=== PATIENT | male | born 1955 | race Caucasian/White ===

== ENCOUNTER 2018-07-08 11:49 | Outpatient (CLI) | payer BC, SELFPAY ==
[2018-07-08 12:02] LABS: Abs Immature Grans 0.02 k/cumm (0.0-0.09); Absolute Basophil Count 0.02 k/cumm (0.0-0.2); Absolute Eosinophil Count 0.22 k/cumm (0.0-0.7); Absolute Lymphocyte Count 1.34 k/cumm (1.2-3.4); Absolute Monocyte Count 0.42 k/cumm (0.11-0.7); Absolute Neutrophil Count 5.82 k/cumm (1.2-6.7); Basophils % 0.3; Eosinophils % 2.8; HCT 34.6 % (40.0-50.0); HGB 11.3 g/dL (13.5-17.5); Immature Grans % 0.3; Lymphocytes % 17.1; Mean Corp. HGB Concentration 32.7 g/dL (32.0-36.0); Mean Corpuscular Hemoglobin 27.6 pg (27.0-33.0); Mean Corpuscular Volume 84.4 fL (80-95); Mean Platelet Volume 9.1 fL (8.0-11.0); Monocytes % 5.4; Neutrophils % 74.1; Platelet Count 284 x1000/uL (130-400); RBC Distribution Width 14.7 % (11.8-14.1); White Blood Cell Count 7.84 k/cumm (4.4-10.8)
[2018-07-08 12:25] LABS: ALT 20 U/L (12-78); AST 19 U/L (15-37); Albumin 3.6 g/dL (3.4-5.0); Alkaline Phosphatase 89 U/L (46-116); Anion Gap 8.9 mmol/L (3-11); BUN 20 mg/dL (7-18); Bilirubin, Total 0.2 mg/dL (0.2-1.0); CO2 25.1 mmol/L (21.0-32.0); CREATININE 1.39 mg/dL (0.70-1.30); Calcium 8.8 mg/dL (8.5-10.1); Chloride 105 mmol/L (98-107); Estimated GFR 51.78 (mL/min/1.73m2); Glucose 127 mg/dL (70-100); Potassium 3.7 mmol/L (3.5-5.1); Sodium 139 mmol/L (136-145); Total Protein 7.1 g/dL (6.4-8.2)
[2018-07-09 09:39] LABS: PSA, Diagnostic 6.6 ng/ml (0-4.5)
== END 2018-07-08 12:09 ==
PROVIDERS: PCP Nurse Practitioner Family; Visit Provider Radiology Radiation Oncology
DX: C61 Malignant neoplasm of prostate (principal)
CPT/HCPCS: 36415; 80053; 84153; 85025

== ENCOUNTER 2018-08-15 09:29 | Outpatient (CLI) | payer BC, SELFPAY ==
[2018-08-15 10:00] LABS: Abs Immature Grans 0.01 k/cumm (0.0-0.09); Absolute Basophil Count 0.02 k/cumm (0.0-0.2); Absolute Lymphocyte Count 1.17 k/cumm (1.2-3.4); Absolute Monocyte Count 0.46 k/cumm (0.11-0.7); Absolute Neutrophil Count 4.63 k/cumm (1.2-6.7); Basophils % 0.3; Eosinophils % 3.1; HCT 36.4 % (40.0-50.0); HGB 12.1 g/dL (13.5-17.5); Immature Grans % 0.2; Mean Corp. HGB Concentration 33.2 g/dL (32.0-36.0); Mean Corpuscular Hemoglobin 28.3 pg (27.0-33.0); Mean Platelet Volume 8.9 fL (8.0-11.0); Monocytes % 7.1; Neutrophils % 71.3; Platelet Count 261 x1000/uL (130-400); RBC 4.28 m/cumm (4.50-6.00); RBC Distribution Width 14.4 % (11.8-14.1); White Blood Cell Count 6.49 k/cumm (4.4-10.8)
[2018-08-15 11:42] LABS: ALT 21 U/L (12-78); AST 19 U/L (15-37); Albumin 3.6 g/dL (3.4-5.0); Alkaline Phosphatase 75 U/L (46-116); Anion Gap 9.6 mmol/L (3-11); BUN 18 mg/dL (7-18); Bilirubin, Total 0.3 mg/dL (0.2-1.0); CO2 26.4 mmol/L (21.0-32.0); CREATININE 1.24 mg/dL (0.70-1.30); Calcium 8.5 mg/dL (8.5-10.1); Chloride 105 mmol/L (98-107); Estimated GFR 59.07 (mL/min/1.73m2); Glucose 99 mg/dL (70-100); Potassium 4.3 mmol/L (3.5-5.1); Sodium 141 mmol/L (136-145); Total Protein 6.5 g/dL (6.4-8.2)
[2018-08-16 09:27] LABS: PSA, Diagnostic 5.4 ng/ml (0-4.5)
== END 2018-08-15 09:49 ==
PROVIDERS: PCP Nurse Practitioner Family; Visit Provider Radiology Radiation Oncology
DX: C61 Malignant neoplasm of prostate (principal)
CPT/HCPCS: 36415; 80053; 84153; 85025

== ENCOUNTER 2018-10-10 01:26 | Outpatient (CLI) | payer BC, SELFPAY ==
[2018-10-10 10:27] LABS: Abs Immature Grans 0.02 k/cumm (0.0-0.09); Absolute Basophil Count 0.02 k/cumm (0.0-0.2); Absolute Eosinophil Count 0.31 k/cumm (0.0-0.7); Absolute Lymphocyte Count 1.22 k/cumm (1.2-3.4); Absolute Monocyte Count 0.25 k/cumm (0.11-0.7); Absolute Neutrophil Count 5.25 k/cumm (1.2-6.7); Basophils % 0.3; Eosinophils % 4.4; HCT 39.3 % (40.0-50.0); HGB 12.8 g/dL (13.5-17.5); Immature Grans % 0.3; Lymphocytes % 17.3; Mean Corp. HGB Concentration 32.6 g/dL (32.0-36.0); Mean Corpuscular Hemoglobin 27.6 pg (27.0-33.0); Mean Corpuscular Volume 84.7 fL (80-95); Mean Platelet Volume 9.2 fL (8.0-11.0); Monocytes % 3.5; Neutrophils % 74.2; Platelet Count 260 x1000/uL (130-400); RBC 4.64 m/cumm (4.50-6.00); RBC Distribution Width 13.9 % (11.8-14.1); White Blood Cell Count 7.07 k/cumm (4.4-10.8)
[2018-10-10 10:36] LABS: ALT 19 U/L (12-78); AST 17 U/L (15-37); Albumin 3.6 g/dL (3.4-5.0); Alkaline Phosphatase 75 U/L (46-116); Anion Gap 9.1 mmol/L (3-11); BUN 19 mg/dL (7-18); Bilirubin, Total 0.4 mg/dL (0.2-1.0); CO2 27.9 mmol/L (21.0-32.0); CREATININE 1.23 mg/dL (0.70-1.30); Calcium 8.9 mg/dL (8.5-10.1); Chloride 102 mmol/L (98-107); Estimated GFR 59.63 (mL/min/1.73m2); Glucose 154 mg/dL (70-100); Potassium 3.8 mmol/L (3.5-5.1); Sodium 139 mmol/L (136-145); Total Protein 7.2 g/dL (6.4-8.2)
[2018-10-12 10:25] LABS: PSA, Diagnostic 4.8 ng/ml (0-4.5)
[2018-10-14 21:07] LABS: Testosterone, Total <7.0 ng/dL (240-950)
== END 2018-10-10 01:46 ==
PROVIDERS: PCP Nurse Practitioner Family; Visit Provider Internal Medicine
DX: C61 Malignant neoplasm of prostate (principal)
CPT/HCPCS: 36415; 80053; 84403; 84153; 85025

== ENCOUNTER 2018-12-01 11:14 | Outpatient (CLI) | payer OTHER, SELFPAY ==
[2018-12-01 11:43] LABS: Abs Immature Grans 0.02 k/cumm (0.0-0.09); Absolute Basophil Count 0.03 k/cumm (0.0-0.2); Absolute Eosinophil Count 0.33 k/cumm (0.0-0.7); Absolute Lymphocyte Count 1.34 k/cumm (1.2-3.4); Absolute Monocyte Count 0.25 k/cumm (0.11-0.7); Absolute Neutrophil Count 5.01 k/cumm (1.2-6.7); Basophils % 0.4; Eosinophils % 4.7; HCT 39.4 % (40.0-50.0); HGB 12.5 g/dL (13.5-17.5); Immature Grans % 0.3; Lymphocytes % 19.2; Mean Corp. HGB Concentration 31.7 g/dL (32.0-36.0); Mean Corpuscular Hemoglobin 26.5 pg (27.0-33.0); Mean Corpuscular Volume 83.7 fL (80-95); Mean Platelet Volume 9.1 fL (8.0-11.0); Monocytes % 3.6; Neutrophils % 71.8; Platelet Count 280 x1000/uL (130-400); RBC 4.71 m/cumm (4.50-6.00); RBC Distribution Width 14.2 % (11.8-14.1); White Blood Cell Count 6.98 k/cumm (4.4-10.8)
[2018-12-01 11:54] LABS: ALT 20 U/L (12-78); AST 17 U/L (15-37); Albumin 3.5 g/dL (3.4-5.0); Alkaline Phosphatase 86 U/L (46-116); Anion Gap 7.3 mmol/L (3-11); BUN 21 mg/dL (7-18); Bilirubin, Total 0.3 mg/dL (0.2-1.0); CO2 29.7 mmol/L (21.0-32.0); CREATININE 1.36 mg/dL (0.70-1.30); Chloride 103 mmol/L (98-107); Estimated GFR 52.93 (mL/min/1.73m2); Glucose 161 mg/dL (70-100); Potassium 3.9 mmol/L (3.5-5.1); Sodium 140 mmol/L (136-145); Total Protein 7.7 g/dL (6.4-8.2)
[2018-12-02 10:44] LABS: PSA, Diagnostic 6.3 ng/ml (0-4.5)
[2018-12-03 15:14] LABS: Testosterone, Total <7.0 ng/dL (240-950)
== END 2018-12-01 11:34 ==
PROVIDERS: PCP Nurse Practitioner Family; Visit Provider Internal Medicine
DX: C61 Malignant neoplasm of prostate (principal)
CPT/HCPCS: 36415; 80053; 84403; 84153; 85025

== ENCOUNTER 2019-01-04 11:12 | Outpatient (CLI) | payer OTHER, SELFPAY ==
[2019-01-04 11:42] LABS: Abs Immature Grans 0.02 k/cumm (0.0-0.09); Absolute Basophil Count 0.03 k/cumm (0.0-0.2); Absolute Eosinophil Count 0.42 k/cumm (0.0-0.7); Absolute Lymphocyte Count 1.28 k/cumm (1.2-3.4); Absolute Monocyte Count 0.46 k/cumm (0.11-0.7); Absolute Neutrophil Count 6.42 k/cumm (1.2-6.7); Basophils % 0.3; Eosinophils % 4.9; HGB 11.9 g/dL (13.5-17.5); Immature Grans % 0.2; Lymphocytes % 14.8; Mean Corp. HGB Concentration 33.1 g/dL (32.0-36.0); Mean Corpuscular Hemoglobin 27.2 pg (27.0-33.0); Mean Corpuscular Volume 82.2 fL (80-95); Mean Platelet Volume 9.2 fL (8.0-11.0); Monocytes % 5.3; Neutrophils % 74.5; Platelet Count 287 x1000/uL (130-400); RBC 4.38 m/cumm (4.50-6.00); RBC Distribution Width 14.7 % (11.8-14.1); White Blood Cell Count 8.63 k/cumm (4.4-10.8)
[2019-01-04 11:55] LABS: ALT 20 U/L (12-78); AST 18 U/L (15-37); Albumin 3.6 g/dL (3.4-5.0); Alkaline Phosphatase 93 U/L (46-116); Anion Gap 10.1 mmol/L (3-11); BUN 20 mg/dL (7-18); Bilirubin, Total 0.3 mg/dL (0.2-1.0); CO2 27.9 mmol/L (21.0-32.0); Calcium 8.7 mg/dL (8.5-10.1); Chloride 101 mmol/L (98-107); Glucose 113 mg/dL (70-100); Potassium 3.8 mmol/L (3.5-5.1); Sodium 139 mmol/L (136-145); Total Protein 7.3 g/dL (6.4-8.2)
[2019-01-05 09:38] LABS: PSA, Diagnostic 6.1 ng/ml (0-4.5)
[2019-01-07 07:07] LABS: Testosterone, Total <7.0 ng/dL (240-950)
== END 2019-01-04 11:32 ==
PROVIDERS: Nurse Practitioner Family; PCP Nurse Practitioner Family; Visit Provider Internal Medicine
DX: C61 Malignant neoplasm of prostate (principal); C79.51 Secondary malignant neoplasm of bone
CPT/HCPCS: 36415; 80053; 84403; 84153; 85025

== ENCOUNTER 2019-03-18 10:47 | Outpatient (CLI) | payer OTHER, SELFPAY ==
[2019-03-18 11:03] LABS: Abs Immature Grans 0.03 k/cumm (0.0-0.09); Absolute Basophil Count 0.02 k/cumm (0.0-0.2); Absolute Eosinophil Count 0.35 k/cumm (0.0-0.7); Absolute Lymphocyte Count 1.43 k/cumm (1.2-3.4); Absolute Monocyte Count 0.41 k/cumm (0.11-0.7); Absolute Neutrophil Count 5.46 k/cumm (1.2-6.7); Basophils % 0.3; Eosinophils % 4.5; HCT 36.6 % (40.0-50.0); HGB 11.8 g/dL (13.5-17.5); Immature Grans % 0.4; Lymphocytes % 18.6; Mean Corp. HGB Concentration 32.2 g/dL (32.0-36.0); Mean Corpuscular Hemoglobin 26.8 pg (27.0-33.0); Mean Platelet Volume 8.9 fL (8.0-11.0); Monocytes % 5.3; Neutrophils % 70.9; Platelet Count 301 x1000/uL (130-400); RBC 4.41 m/cumm (4.50-6.00); RBC Distribution Width 14.8 % (11.8-14.1)
[2019-03-18 11:29] LABS: ALT 21 U/L (12-78); AST 17 U/L (15-37); Albumin 3.5 g/dL (3.4-5.0); Alkaline Phosphatase 91 U/L (46-116); Anion Gap 10.3 mmol/L (3-11); BUN 16 mg/dL (7-18); Bilirubin, Total 0.2 mg/dL (0.2-1.0); CO2 26.7 mmol/L (21.0-32.0); CREATININE 1.12 mg/dL (0.70-1.30); Chloride 103 mmol/L (98-107); Glucose 108 mg/dL (70-100); Potassium 3.7 mmol/L (3.5-5.1); Sodium 140 mmol/L (136-145); Total Protein 7.2 g/dL (6.4-8.2)
== END 2019-03-18 11:07 ==
PROVIDERS: PCP Nurse Practitioner Family
DX: C61 Malignant neoplasm of prostate (principal); C79.51 Secondary malignant neoplasm of bone
CPT/HCPCS: 36415; 80053; 85025

== ENCOUNTER 2019-04-15 09:54 | Outpatient (CLI) | payer OTHER, SELFPAY ==
[2019-04-18 10:50] LABS: PSA, Diagnostic 11.6 ng/ml (0-4.5)
[2019-04-18 12:57] LABS: Testosterone, Total <7.0 ng/dL (240-950)
[2019-04-19 15:04] LABS: ALT 35 U/L (12-78); AST 21 U/L (15-37); Albumin 3.6 g/dL (3.4-5.0); Alkaline Phosphatase 92 U/L (46-116); Anion Gap 16.6 mmol/L (3-11); BUN 14 mg/dL (7-18); Bilirubin, Total 0.3 mg/dL (0.2-1.0); CO2 21.4 mmol/L (21.0-32.0); Chloride 104 mmol/L (98-107); Glucose 105 mg/dL (70-100); Sodium 142 mmol/L (136-145); Total Protein 6.7 g/dL (6.4-8.2)
[2019-04-19 15:09] LABS: CREATININE 1.01 mg/dL (0.70-1.30)
[2019-04-19 15:12] LABS: Potassium 4.2 mmol/L (3.5-5.1)
== END 2019-04-15 10:14 ==
PROVIDERS: Internal Medicine; PCP Nurse Practitioner Family; Visit Provider Nurse Practitioner Family
DX: C61 Malignant neoplasm of prostate (principal); C79.51 Secondary malignant neoplasm of bone
CPT/HCPCS: 36415; 80053; 84403; 84153

== ENCOUNTER 2019-04-22 01:29 | Outpatient (CLI) | payer OTHER, SELFPAY ==
--- NOTE | 2019-04-22 10:30 | DI.NM_ITS ---
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 Examination was compared with the previous examination of 12/22/2017. Previous examination showed multiple areas of abnormal uptake consistent with widespread metastatic prostatic carcinoma. On today's examination, there is some decreased intensity of lesions in the lumbar and thoracic spine. Some rib lesions also show mildly decreased intensity. No convincing new lesions identified. CONCLUSION: Findings of decreased intensity of lumbar and rib metastatic lesions since the previous examination of 12/22/17. Other lesions remain unchanged. No new lesions identified.
== END 2019-04-22 01:49 ==
PROVIDERS: PCP Nurse Practitioner Family; Visit Provider Internal Medicine
DX: C61 Malignant neoplasm of prostate (principal); C79.51 Secondary malignant neoplasm of bone; M54.89 Other dorsalgia
CPT/HCPCS: 78306

== ENCOUNTER 2019-05-10 08:50 | Outpatient (CLI) | payer MEDICAID, SELFPAY ==
[2019-05-10 09:27] LABS: Abs Immature Grans 0.01 k/cumm (0.0-0.09); Absolute Basophil Count 0.01 k/cumm (0.0-0.2); Absolute Eosinophil Count 0.05 k/cumm (0.0-0.7); Absolute Lymphocyte Count 0.54 k/cumm (1.2-3.4); Absolute Monocyte Count 0.36 k/cumm (0.11-0.7); Absolute Neutrophil Count 3.33 k/cumm (1.2-6.7); Basophils % 0.2; Eosinophils % 1.2; HCT 32.2 % (40.0-50.0); HGB 10.7 g/dL (13.5-17.5); Immature Grans % 0.2; Lymphocytes % 12.6; Mean Corp. HGB Concentration 33.2 g/dL (32.0-36.0); Mean Corpuscular Hemoglobin 27.7 pg (27.0-33.0); Mean Corpuscular Volume 83.4 fL (80-95); Mean Platelet Volume 8.5 fL (8.0-11.0); Monocytes % 8.4; Neutrophils % 77.4; Platelet Count 145 x1000/uL (130-400); RBC 3.86 m/cumm (4.50-6.00); RBC Distribution Width 15.8 % (11.8-14.1)
[2019-05-10 09:49] LABS: ALT 46 U/L (12-78); AST 28 U/L (15-37); Albumin 3.5 g/dL (3.4-5.0); Alkaline Phosphatase 111 U/L (46-116); Anion Gap 12.4 mmol/L (3-11); BUN 18 mg/dL (7-18); Bilirubin, Total 0.4 mg/dL (0.2-1.0); CO2 24.6 mmol/L (21.0-32.0); CREATININE 1.05 mg/dL (0.70-1.30); Calcium 8.7 mg/dL (8.5-10.1); Chloride 104 mmol/L (98-107); Glucose 133 mg/dL (70-100); Potassium 3.4 mmol/L (3.5-5.1); Sodium 141 mmol/L (136-145); Total Protein 6.9 g/dL (6.4-8.2)
[2019-05-10 13:35] LABS: Magnesium 1.8 mg/dL (1.8-2.4)
[2019-05-11 10:06] LABS: PSA, Diagnostic 9.6 ng/ml (0-4.5)
[2019-05-12 13:55] LABS: Testosterone, Total 9.2 ng/dL (240-950)
== END 2019-05-10 09:10 ==
PROVIDERS: PCP Nurse Practitioner Family; Visit Provider Internal Medicine
DX: C61 Malignant neoplasm of prostate (principal); C79.51 Secondary malignant neoplasm of bone; I49.9 Cardiac arrhythmia, unspecified
CPT/HCPCS: 36415; 80053; 84403; 83735; 84153; 85025

== ENCOUNTER 2019-05-27 11:14 | Emergency (ER) | payer MEDICAID, SELFPAY ==
[2019-05-27] VITALS (36 sets, daily range): BP systolic 112–134; BP diastolic 69–88; PULSE 64–87; RESP 10–22; TEMP 36.7–36.8; O2SAT 94–98
--- NOTE | 2019-05-27 11:37 | W.ED.GENAD ---
Discharge Plan Disposition Patient Disposition: HOME Condition: Improving Discharge Details Chief Complaint: Dizzy/Sync Clinical Impression: Pancytopenia, Status post chemotherapy, Dizziness, Dehydration Primary Care Provider: Mary Holland ED Provider: Fatou Cage Home Meds and New Rx's Prescriptions: Continued celecoxib 200 mg capsule 200 mg PO BID PRN (Reason: pain) Qty: 60 RF: 4 calcium-vitamin D3-vitamin K 1 EACH tablet,chewable 1 ea PO DAILY Qty: 90 RF: 3 amlodipine 10 MG tablet 10 mg PO DAILY RF: 0 potassium chloride 10 MEQ capsule, extended release 20 meq PO DAILY RF: 0 lisinopril [Zestril] 30 MG tablet 30 mg PO QAM RF: 0 tamsulosin 0.4 mg capsule 0.4 mg PO BID RF: 0 acyclovir 800 mg tablet 800 mg PO .five times daily PRNRF: 0 Discharge Instructions Instructions: Dehydration (ED), Dizziness (ED) Additional Instructions: Drink plenty of fluids and get plenty of rest. Follow-up with your scheduled appointment with [facility] oncology on Thursday Return to the emergency department if you develop any worsening or concerning symptoms of fever, headache, chest pain, worsening dizziness or shortness of breath. Discharge Data Discharge Date/Time-TO BE ENTERED AT DEPARTURE: 05/27/19 17:04 Discharge Physician: Fatou Cage Medical Decision Making 63yo M w/ a h/o prostate cancer with bone mets, BPH, hypertension who presents with dizziness and lightheadedness for the past 2 weeks but occurs with walking. Patient is two-week status post chemotherapy. EKG notes a rate of 91, sinus, [address] depression noted in 1 and V6 which is seen in previous EKG. [address] depression in V4 and V5 which is new compared to previous EKG. Labs and imaging ordered on arrival. White blood cell count 3.51, decreased from 4.3 two weeks ago, hemoglobin 8.1 decreased from 10.7 two weeks ago, platelets 63 decreased from 145 two weeks ago. No neutropenia. Troponin negative. CT head and chest x-ray negative. Urinalysis negative. Patient given IV fluids here. Will attempt to ambulate and will call [facility] oncology for recommendations. 1420 -- d/w oncology at [facility] - reviewed labs and pancytopenia can be expected with his recent chemo. Reviewed work-up and as there are no acute findings and if patient feels better after IV fluids, can be discharged home and follow-up with scheduled appointment with oncology on Thursday. 1614 --orthostats consistent with some dehydration. Patient felt much better after 2 L of IV fluids. He was able to ambulate denies any dizziness and he is requesting to go home. Patient advised to follow-up with his scheduled appointment with [facility] oncology on Thursday and to return here at anytime with any concerns. Medical Records Medical records reviewed: Yes I reviewed the patient's medical records. Imaging Data Radiologic Study: Radiologist's impression: CT BRAIN: Noncontrast. No priors There is a normal greenfield/white matter differentiation. The ventricles are intact. The basilar cisterns are patent. No acute intracranial hemorrhage, midline shift or mass effect. The calvarium is intact. The visualized paranasal sinuses are clear as are the mastoid air cells. IMPRESSION: No acute intracranial process. CHEST X-RAY: PA AND LATERAL. Comparison 05/04/17 Heart size and pulmonary vasculature are within normal limits. The lungs are clear and well expanded. No effusions or pneumothoraces are identified. There are sclerotic lesions in the bones consistent with osseous metastatic disease IMPRESSION: 1. No acute pulmonary process 2. Osseous metastases. Lab Data Lab results reviewed: Yes I reviewed the patient's lab results. Laboratory Tests Range/Units 05/27/19 05/27/19 05/27/19 11:40 11:40 13:03 WBC (4.4-10.8) k/cumm 3.51 L RBC (4.50-6.00) m/cumm 3.15 L Hgb (13.5-17.5) g/dL 8.9 L Hct (40.0-50.0) % 26.8 L MCV (80-95) fL 85.1 MCH (27.0-33.0) pg 28.3 MCHC (32.0-36.0) g/dL 33.2 RDW (11.8-14.1) % 17.3 H Plt Count (130-400) x1000/uL 63 L D MPV (8.0-11.0) fL 8.6 Immature Gran % 0.6 Neutrophils % 74.0 Lymphocytes % 13.7 Monocytes % 10.3 Eosinophils % 1.1 Basophils % 0.3 Absolute Neutrophils (1.2-6.7) k/cumm 2.60 Absolute Lymphocytes (1.2-3.4) k/cumm 0.48 L Absolute Monocytes (0.11-0.7) k/cumm 0.36 Absolute Eosinophils (0.0-0.7) k/cumm 0.04 Absolute Basophils (0.0-0.2) k/cumm 0.01 Sodium (136-145) mmol/L 140 Potassium (3.5-5.1) mmol/L 3.7 Chloride (98-107) mmol/L 105 Carbon Dioxide (21.0-32.0) mmol/L 23.8 Anion Gap (3-11) mmol/L 11.2 H BUN (7-18) mg/dL 22 H Creatinine (0.70-1.30) mg/dL 1.36 H Estimated GFR/1.73 m2 (mL/min/1.73m2) 52.93 Glucose (70-100) mg/dL 129 H Calcium (8.5-10.1) mg/dL 8.4 L Magnesium (1.8-2.4) mg/dL 1.8 Total Bilirubin (0.2-1.0) mg/dL 0.3 AST (15-37) U/L 22 ALT (12-78) U/L 35 Alkaline Phosphatase (46-116) U/L 112 Troponin I (0.00-0.06) ng/mL < 0.05 Total Protein (6.4-8.2) g/dL 6.6 Albumin (3.4-5.0) g/dL 3.4 Urine Color (Yellow) Yellow Urine Clarity (Clear) Clear Urine pH (5-8) 6.0 Ur Specific [place] (1.005-1.025) 1.010 Urine Protein (Negative) mg/dL Negative Urine Ketones (Negative) mg/dL Negative Urine Blood (Negative) Negative Urine Nitrite (Negative) Negative Urine Bilirubin (Negative) Negative Urine Urobilinogen (Up TO 0.2) EU/dL 0.2 Ur Leukocyte Esterase (Negative) Negative Urine Glucose (Negative) mg/dL Negative ECG Data Attestation: I personally reviewed and interpreted this ECG (s) as follows: Interpretation: rate of 91, sinus, PVCs, no acute ST elevation or depression, QTc 440, QRS 96. HPI General Mode of arrival: ambulatory. Date/Time Provider Initiated Documentation: 05/27/19 11:29. Limitations to Documentation: no limitations. Information obtained by: patient. HPI Narrative: Pt is a 63yo male who presents to the ED with complaint of dizziness for the past 2 weeks. Patient states that mainly happens when he is walking for a few minutes. He denies any dizziness when he is resting or sitting. He also admits to decreased appetite for the past 2 weeks. He states he had his first round of chemo 3 weeks ago and his second round 2 weeks ago. He states his next session is scheduled for next week. He states he also was started on metoprolol 2 weeks ago. He admits to occasional headache but denies any at present. He also admits to occasional diarrhea once daily for the past 3 days but denies any rectal bleeding. He denies known fever, chest pain, shortness of breath, palpitations, recent antibiotics, recent hospital admission or urinary symptoms he states his oncologist is Dr. Hyde and he receives his chemo at [facility]. Related Data Home Medications Medication Instructions Recorded Confirmed calcium-vitamin D3-vitamin K 1 ea PO DAILY #90 tab.chew 04/26/14 05/27/19 amlodipine 10 mg PO DAILY 08/25/14 05/27/19 lisinopril [Zestril] 30 mg PO QAM 05/04/17 05/27/19 potassium chloride 20 meq PO DAILY 05/04/17 05/27/19 celecoxib 200 mg capsule 200 mg PO BID PRN #60 cap 03/02/19 05/27/19 tamsulosin 0.4 mg capsule 0.4 mg PO BID cap 03/02/19 05/27/19 acyclovir 800 mg tablet 800 mg PO .five times daily PRN 05/11/19 05/27/19 tab Previous Rx's Medication Instructions Recorded celecoxib 200 mg capsule 200 mg PO BID PRN #60 cap 03/02/19 Allergies Allergy/AdvReac Type Severity Reaction Status Date / Time docetaxel Allergy Severe Anaphylaxsi Unverified 05/27/19 11:30 s adhesive tape Allergy Hives Unverified 05/27/19 11:30 oxycodone HCl [From Percocet] AdvReac Intermediate Nausea Unverified 05/27/19 11:30 tramadol AdvReac Intermediate Dizziness/L Unverified 05/27/19 11:30 ightheade Opioids - Morphine Analogues AdvReac Unknown nausea Unverified 05/27/19 11:30 pain killers Allergy Uncoded 05/27/19 11:30 General Stated Complaint: Dizzy/Sync ADA: 3 Review of Systems Review of Systems All systems reviewed & are unremarkable except as noted in HPI and below Constitutional Reports as per HPI, Denies chills, Denies fever(s) and Reports weakness Eyes Denies blurry vision ENT Reports dizziness, Denies sore throat and Denies throat swelling Cardiovascular Denies chest pain and Denies dyspnea Respiratory Denies cough and Denies dyspnea Gastrointestinal Denies abdominal pain, Denies diarrhea and Denies vomiting Genitourinary Denies hematuria and Denies dysuria Musculoskeletal Denies back pain and Denies numbness Integumentary/Breasts Denies lesions and Denies rash Neurologic Reports dizziness, Denies focal weakness, Denies numbness and Reports weakness Allergic/Immunologic Denies throat swelling [facility] Medical History Adenocarcinoma of prostate (Chronic) Aortic stenosis (Chronic) Bilateral inguinal hernia BPH (benign prostatic hypertrophy) with urinary obstruction (Chronic) History of herpes simplex type 2 infection (Chronic) Hypertension (Chronic) Malignant neoplasm of prostate metastatic to bone (Inactive) Prostate cancer metastatic to multiple sites (Acute) Tobacco dependence (Chronic) Vertigo (Acute) Surgical History Arthroplasty of knee Cystoscopy History of orchiectomy, bilateral (Acute) Hx of prostate biopsy (Acute) Rotator Cuff Repair S/P TURP (status post transurethral resection of prostate) (Acute) Family History Mother Pancreatic cancer Brother Colorectal cancer Son No problems noted. Daughter No problems noted. Social History Smoking/Tobacco Use Status: Former Tobacco Use Quit Date: 02/13/16 Alcohol Intake: never Drug use: Never Do you feel safe at home: Yes Do you feel safe in your relationship?: Yes Exam Const General: cooperative, healthy appearing and no acute distress HENMT Head: normal to inspection Face and sinus: normal facial exam Eyes General: appearance normal, both eyes and all related structures EOM: EOM intact bilaterally Neck Neck: normal visual inspection and No submandibular swelling Lymphatic: no lymphadenopathy noted Chest Chest: normal inspection of the chest and no tenderness Resp Effort & Inspection: normal respiratory effort and able to speak in complete sentences Auscultation: clear to auscultation bilaterally Cardio Rate: regular rate Rhythm: regular rhythm GI Inspection: normal to inspection Palpation: soft, not firm, not rigid and nontender Auscultation: normal bowel sounds Skin General skin exam: no rashes or lesions noted Neuro General: alert, awake and oriented x3 Cranial Nerves: CN's II-XI intact bilaterally Cognition: normal cognition Speech: speech normal Motor: muscle tone normal throughout and strength 5/5 throughout Sensory Exam: no sensory deficits noted Extrem General: normal to inspection, full ROM, normal capillary refill, no calf tenderness bilaterally and no edema Psych Appearance: grossly normal Mental Status: mental status grossly normal Speech and Movement: speech and movement normal Affect: normal affect Course Vital Signs Temperature 98.2 F 05/27/19 11:17 Pulse 80 05/27/19 11:17 Respiratory Rate 16 05/27/19 11:17 Blood Pressure 123/70 05/27/19 11:17 Pulse Oximetry 97 05/27/19 11:17 Temperature 98.2 F 05/27/19 11:17 Temperature Source Skin 05/27/19 11:17 Pulse 80 05/27/19 11:17 Respiratory Rate 16 05/27/19 11:17 Respiratory Effort 05/27/19 11:32 Blood Pressure 123/70 05/27/19 11:17 Pulse Oximetry 97 05/27/19 11:17 Oxygen Delivery Method Room Air 05/27/19 11:17 Oxygen Flow Rate 0 05/27/19 11:17 Pain Level 0 05/27/19 11:17
[2019-05-27 12:02] LABS: Abs Immature Grans 0.02 k/cumm (0.0-0.09); Absolute Basophil Count 0.01 k/cumm (0.0-0.2); Absolute Eosinophil Count 0.04 k/cumm (0.0-0.7); Absolute Lymphocyte Count 0.48 k/cumm (1.2-3.4); Absolute Monocyte Count 0.36 k/cumm (0.11-0.7); Basophils % 0.3; Eosinophils % 1.1; HCT 26.8 % (40.0-50.0); HGB 8.9 g/dL (13.5-17.5); Immature Grans % 0.6; Lymphocytes % 13.7; Mean Corp. HGB Concentration 33.2 g/dL (32.0-36.0); Mean Corpuscular Hemoglobin 28.3 pg (27.0-33.0); Mean Corpuscular Volume 85.1 fL (80-95); Mean Platelet Volume 8.6 fL (8.0-11.0); Monocytes % 10.3; RBC 3.15 m/cumm (4.50-6.00); RBC Distribution Width 17.3 % (11.8-14.1); White Blood Cell Count 3.51 k/cumm (4.4-10.8)
--- NOTE | 2019-05-27 12:08 | DI.CT_ITS ---
SYMPTOM/DIAGNOSIS: DIZZINESS, H/O PROSTATE CA, R/O METS/CVA CT BRAIN: Noncontrast. No priors There is a normal greenfield/white matter differentiation. The ventricles are intact. The basilar cisterns are patent. No acute intracranial hemorrhage, midline shift or mass effect. The calvarium is intact. The visualized paranasal sinuses are clear as are the mastoid air cells. IMPRESSION: No acute intracranial process. The findings were discussed with the Emergency Department on the date of the examination.
--- NOTE | 2019-05-27 12:12 | DI.RAD_ITS ---
SYMPTOM/DIAGNOSIS: DIZZINESS, R/O ACUTE DISEASE CHEST X-RAY: PA AND LATERAL. Comparison 05/04/17 Heart size and pulmonary vasculature are within normal limits. The lungs are clear and well expanded. No effusions or pneumothoraces are identified. There are sclerotic lesions in the bones consistent with osseous metastatic disease IMPRESSION: 1. No acute pulmonary process 2. Osseous metastases.
[2019-05-27 12:14] LABS: ALT 35 U/L (12-78); AST 22 U/L (15-37); Albumin 3.4 g/dL (3.4-5.0); Alkaline Phosphatase 112 U/L (46-116); Anion Gap 11.2 mmol/L (3-11); BUN 22 mg/dL (7-18); Bilirubin, Total 0.3 mg/dL (0.2-1.0); CO2 23.8 mmol/L (21.0-32.0); CREATININE 1.36 mg/dL (0.70-1.30); Calcium 8.4 mg/dL (8.5-10.1); Chloride 105 mmol/L (98-107); Estimated GFR 52.93 (mL/min/1.73m2); Glucose 129 mg/dL (70-100); Magnesium 1.8 mg/dL (1.8-2.4); Platelet Count 63 x1000/uL (130-400); Potassium 3.7 mmol/L (3.5-5.1); Sodium 140 mmol/L (136-145); Total Protein 6.6 g/dL (6.4-8.2)
[2019-05-27 12:21] LABS: Troponin I < 0.05 ng/mL (0.00-0.06)
[2019-05-27] MEDS: Normal Saline 1,000 ML 1000 ML IV ×2 (13:02→15:35)
[2019-05-27 13:13] LABS: Bilirubin Negative (Negative); Blood Negative (Negative); Clarity Clear (Clear); Glucose Negative (Negative); Ketones Negative (Negative); Leukocyte Esterase Negative (Negative); Nitrite Negative (Negative); Urobilinogen 0.2 EU/dL (Up TO 0.2)
== END 2019-05-27 17:04 | disposition home or self-care (01) ==
PROVIDERS: Emergency Provider Physician Assistant; PCP Nurse Practitioner Family
DX: E86.0 Dehydration (principal); R42 Dizziness and giddiness; D61.818 Other pancytopenia; C61 Malignant neoplasm of prostate; Z79.899 Other long term (current) drug therapy; I10 Essential (primary) hypertension
CPT/HCPCS: 36415; 80053; 93005; 96360; 96361; 99285; 70450; 71046; 81003; 83735; 84484; 85025; 93010

== ENCOUNTER 2019-05-31 07:51 | Outpatient (CLI) | payer MEDICAID, SELFPAY ==
[2019-05-31 08:24] LABS: Abs Immature Grans 0.01 k/cumm (0.0-0.09); Absolute Basophil Count 0.01 k/cumm (0.0-0.2); Absolute Eosinophil Count 0.05 k/cumm (0.0-0.7); Absolute Lymphocyte Count 0.54 k/cumm (1.2-3.4); Basophils % 0.2; Eosinophils % 1.2; HCT 28.3 % (40.0-50.0); HGB 9.6 g/dL (13.5-17.5); Immature Grans % 0.2; Lymphocytes % 13.1; Mean Corp. HGB Concentration 33.9 g/dL (32.0-36.0); Mean Corpuscular Hemoglobin 29.2 pg (27.0-33.0); Monocytes % 9.7; Neutrophils % 75.6; RBC 3.29 m/cumm (4.50-6.00); RBC Distribution Width 18.5 % (11.8-14.1); White Blood Cell Count 4.11 k/cumm (4.4-10.8)
[2019-05-31 08:33] LABS: Absolute Neutrophil Count 3.11 k/cumm (1.2-6.7)
[2019-05-31 08:41] LABS: ALT 38 U/L (12-78); AST 26 U/L (15-37); Albumin 3.7 g/dL (3.4-5.0); Alkaline Phosphatase 105 U/L (46-116); Anion Gap 12.7 mmol/L (3-11); BUN 20 mg/dL (7-18); Bilirubin, Total 0.3 mg/dL (0.2-1.0); CO2 24.3 mmol/L (21.0-32.0); CREATININE 1.34 mg/dL (0.70-1.30); Calcium 8.5 mg/dL (8.5-10.1); Chloride 103 mmol/L (98-107); Estimated GFR 53.84 (mL/min/1.73m2); Glucose 112 mg/dL (70-100); Magnesium 1.9 mg/dL (1.8-2.4); Potassium 3.8 mmol/L (3.5-5.1); Sodium 140 mmol/L (136-145); Total Protein 7.1 g/dL (6.4-8.2)
[2019-05-31 08:43] LABS: Anisocytosis 2+; Diff Comment RBC Morph Reviewed; Platelet Count 108 x1000/uL (130-400)
[2019-06-01 09:59] LABS: PSA, Diagnostic 7.2 ng/ml (0-4.5)
[2019-06-04 08:16] LABS: Testosterone, Total <7.0 ng/dL (240-950)
== END 2019-05-31 08:11 ==
PROVIDERS: PCP Nurse Practitioner Family; Visit Provider Internal Medicine
DX: C61 Malignant neoplasm of prostate (principal); C79.51 Secondary malignant neoplasm of bone; I49.9 Cardiac arrhythmia, unspecified
CPT/HCPCS: 36415; 80053; 84403; 83735; 84153; 85025

== ENCOUNTER 2019-06-03 11:08 | Emergency (ER) | payer MEDICAID, SELFPAY ==
[2019-06-03] VITALS (47 sets, daily range): BP systolic 115–139; BP diastolic 65–107; PULSE 73–102; RESP 10–21; TEMP 36.6–36.8; O2SAT 89–98
--- NOTE | 2019-06-03 11:19 | W.ED.GENAD ---
Discharge Plan Disposition Patient Disposition: HOME Condition: Stable Discharge Details Chief Complaint: Chest Pain Clinical Impression: Atypical chest pain Primary Care Provider: Mary Holland ED Provider: Tracy Gregory Home Meds and New Rx's Prescriptions: Continued celecoxib 200 mg capsule 200 mg PO BID PRN (Reason: pain) Qty: 60 RF: 4 calcium-vitamin D3-vitamin K 1 EACH tablet,chewable 1 ea PO DAILY Qty: 90 RF: 3 amlodipine 10 MG tablet 10 mg PO DAILY RF: 0 potassium chloride 10 MEQ capsule, extended release 20 meq PO DAILY RF: 0 lisinopril [Zestril] 30 MG tablet 30 mg PO QAM RF: 0 tamsulosin 0.4 mg capsule 0.4 mg PO BID RF: 0 acyclovir 800 mg tablet 800 mg PO .five times daily PRNRF: 0 Discharge Instructions Instructions: Chest Pain (ED) Additional Instructions: Encourage hydration. Tylenol and/or Ibuprofen as needed for discomfort. Please call primary care to schedule appointment next week for reevaluation. If you develop fevers/chills, increased pain, shortness of breath, difficulty breathing or other new/worsening symptoms please seek care urgently once again. Referrals: Mary Holland [Primary Care Provider] - Discharge Data Discharge Date/Time-TO BE ENTERED AT DEPARTURE: 06/03/19 15:59 Medical Decision Making Patient anabelle 63 year old male presenting with c/c of CP that began when he awoke this AM. Pain worse with movements. No pain at this time. Denies SOB or difficulty breathing, is endorsing pleuritic discomfort. No recent cough, no fevers/chills. No cardiac history. Hx of prostate ca for which he is undergoing chemotherapy. Pain does not radiate. Indicates the left lower ribs as area of discomfort. No trauma but does reprot he was very active yesterday preforming over head painting. Pain did not wake him up. On exam, patient is resting comfortably. He is not in respiratory distress, VS WNL. Lungs are clear. No pain with palpation of chest. No abdominal pain. Cardiovascular exam normal. No edema, no calf pain. EKG reviewed by Dr. Cage. Patient has <1 ST depression in V4-V6 whih has been seen in previous EKG. No other evidence of abnormality, no STEMI. NSR rate 85. Labs signficant for white count >50. Patient underwent chemo 3 days ago, 2 days ago received injection of Udenyca. Unclear what his WBC elevates to after his injections historically. Do not have record of his WBC being this elevated historically. Patient is anemic iw Hgb 9.2, this is stable for the patient. D-dimer elevated at 879, with his pleuritic CP and hx of ca I am concerned for possible PE, will send for CT. Creatinine 1.53 which is up from the patients baseline of 1.3. Alk phos elevated at 142, this is elevated from baseline. Spoke with radiologist regarding CT findings. He advised that bone mets are noted, unchanged from previous CT scans. No PE. 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 We did discuss that it could be mets but that this would be unusual with prostate as a primary source. [place] [facility] [place] with [place]ology oncology. Consulted with Dr. Talbot with hematology oncology. Discussed patients labs and imaging. Imaging was pushed to their facility. He advised that a WBC of 50 is not unusual. Discussed the pericardial cyst and passed along the recommendations from our radiologist. He does not feel that further evaluation is necessary as the patietn is not having any symptoms of acute illness. Discussed these recommendations with the patient. Advised that as his pain is only with exertion and he was exerting himself yesterday, this is likely muscular. However, he was given strict return precautions. He was advised close f/u with PCP. Discussed OTC and home remedies that may help with symptomatic management. He will f/u with oncology regardig the cyst noted on todays imaging. All of his quesitons and concerns were addressed, he is in agreement [facility] this plan. HPI General Mode of arrival: ambulatory. Date/Time Provider Initiated Documentation: 06/03/19 11:11. Limitations to Documentation: no limitations. Information obtained by: patient and RN notes reviewed. HPI Narrative: Patient is a 63 year old male, presenting with c/c of CP. States that he awoke with pain this morning. reports that yesterday he was painting overhead at his daughters house which is unusual for him. Reports that the pain is worse with movement and deep inspiration. Pain is improved at this time while he is laying flat. Denies SOB, difficulty breathing. No known heart disease. Patient is currently undergoing chemotherapy for adenocarcinoma of prostate. Last received treatment >1 week ago, is receiving treatment every 3 weeks. Denies cough. No fevers/chills. Denies GI upset. No pain in his back. Related Data Home Medications Medication Instructions Recorded Confirmed calcium-vitamin D3-vitamin K 1 ea PO DAILY #90 tab.chew 04/26/14 05/27/19 amlodipine 10 mg PO DAILY 08/25/14 05/27/19 lisinopril [Zestril] 30 mg PO QAM 05/04/17 05/27/19 potassium chloride 20 meq PO DAILY 05/04/17 05/27/19 celecoxib 200 mg capsule 200 mg PO BID PRN #60 cap 03/02/19 05/27/19 tamsulosin 0.4 mg capsule 0.4 mg PO BID cap 03/02/19 05/27/19 acyclovir 800 mg tablet 800 mg PO .five times daily PRN 05/11/19 05/27/19 tab Previous Rx's Medication Instructions Recorded celecoxib 200 mg capsule 200 mg PO BID PRN #60 cap 03/02/19 Allergies Allergy/AdvReac Type Severity Reaction Status Date / Time docetaxel Allergy Severe Anaphylaxsi Unverified 05/27/19 11:30 s adhesive tape Allergy Hives Unverified 05/27/19 11:30 oxycodone HCl [From Percocet] AdvReac Intermediate Nausea Unverified 05/27/19 11:30 tramadol AdvReac Intermediate Dizziness/L Unverified 05/27/19 11:30 ightheade Opioids - Morphine Analogues AdvReac Unknown nausea Unverified 05/27/19 11:30 pain killers Allergy Uncoded 05/27/19 11:30 General Stated Complaint: Chest Pain ADA: 2 Review of Systems Constitutional Reports as per HPI, Denies chills, Denies fever(s), Denies headache(s), Denies lethargy and Denies poor appetite Eyes Denies change in vision ENT Denies dizziness and Denies headache(s) Cardiovascular Reports as per HPI, Denies dyspnea and Denies dyspnea on exertion Respiratory Reports as per HPI, Denies chest congestion, Denies cough, Denies pain on inspiration, Denies pain with cough, Denies dyspnea, Denies dyspnea on exertion and Denies wheezing Gastrointestinal Reports as per HPI, Denies abdominal pain, Denies diarrhea, Denies nausea and Denies vomiting Genitourinary Denies system reviewed and no additional complaints, except as docu (denies change in urinary habits) Musculoskeletal Reports as per HPI and Denies back pain Integumentary/Breasts Reports as per HPI and Denies rash Neurologic Reports as per HPI, Denies dizziness and Denies headache(s) Allergic/Immunologic Denies wheezing [facility] Social History Smoking/Tobacco Use Status: Former Tobacco Use Quit Date: 02/13/16 Alcohol Intake: never Drug use: Never Substance use type: does not use Do you feel safe at home: Yes Do you feel safe in your relationship?: Yes Exam Const General: cooperative, healthy appearing, comfortable, no acute distress and well developed Nutritional Appearance: average body habitus and well nourished Orientation: alert, awake and oriented x3 HENMT Head: normal to inspection Ears: hearing grossly normal bilaterally Mouth: moist mucous membranes Chest Chest: normal inspection of the chest, normal palpation of entire chest wall and no crepitus Resp Effort & Inspection: normal respiratory effort, able to speak in complete sentences and no respiratory distress Auscultation: clear to auscultation bilaterally, no rales, no rhonchi and no wheezes Cardio Rate: regular rate Rhythm: regular rhythm Heart Sounds: S1 normal and S2 normal GI Inspection: normal to inspection, no edema and non-distended Palpation: soft, no hepatosplenomegaly, not firm, no guarding, not rigid and nontender Auscultation: normal bowel sounds Back/Spine/Pelvis Back: no CVA tenderness Thoracic/Lumbar Spine: thoracic and lumbar spine normal to inspection Skin General skin exam: no rashes or lesions noted Trauma: no lacerations or abrasions Neuro General: alert, awake and oriented x3 Cognition: normal cognition Speech: speech normal Gait: normal gait Extrem General: normal to inspection, normal capillary refill, no pedal edema, no calf tenderness and normal gait Psych Appearance: grossly normal and well kempt Mental Status: mental status grossly normal Speech and Movement: speech and movement normal Course Vital Signs Temperature 36.6 C 06/03/19 11:11 Pulse 84 06/03/19 11:11 Respiratory Rate 19 06/03/19 11:11 Blood Pressure 127/76 06/03/19 11:11 Pulse Oximetry 97 06/03/19 11:11 Temperature 36.6 C 06/03/19 11:11 Temperature Source Skin 06/03/19 11:11 Pulse 84 06/03/19 11:11 Respiratory Rate 19 06/03/19 11:11 Blood Pressure 127/76 06/03/19 11:11 Pulse Oximetry 97 06/03/19 11:11 Oxygen Delivery Method Room Air 06/03/19 11:11 Oxygen Flow Rate 0 06/03/19 11:11
[2019-06-03] MEDS: Aspirin 325 MG TAB (11:29)
[2019-06-03 11:35] LABS: Abs Immature Grans 4.85 k/cumm (0.0-0.09); HCT 27.5 % (40.0-50.0); HGB 9.2 g/dL (13.5-17.5); Mean Corp. HGB Concentration 33.5 g/dL (32.0-36.0); Mean Corpuscular Volume 89.6 fL (80-95); Mean Platelet Volume 8.6 fL (8.0-11.0); Platelet Count 186 x1000/uL (130-400); RBC 3.07 m/cumm (4.50-6.00); RBC Distribution Width 20.7 % (11.8-14.1)
[2019-06-03 11:47] LABS: ALT 28 U/L (12-78); AST 16 U/L (15-37); Albumin 3.5 g/dL (3.4-5.0); Alkaline Phosphatase 142 U/L (46-116); Anion Gap 9.9 mmol/L (3-11); BUN 25 mg/dL (7-18); Bilirubin, Total 0.3 mg/dL (0.2-1.0); CO2 26.1 mmol/L (21.0-32.0); CREATININE 1.53 mg/dL (0.70-1.30); Calcium 8.2 mg/dL (8.5-10.1); Chloride 107 mmol/L (98-107); Glucose 120 mg/dL (70-100); Magnesium 1.9 mg/dL (1.8-2.4); Potassium 4.3 mmol/L (3.5-5.1); Sodium 143 mmol/L (136-145); Total Protein 6.7 g/dL (6.4-8.2); Troponin I < 0.05 ng/mL (0.00-0.06)
[2019-06-03 11:48] LABS: PTT Activated 21.7 sec (21.0-31.4); Prothrombin Time 9.6 sec (9.3-11.0)
--- NOTE | 2019-06-03 11:49 | DI.RAD_ITS ---
SYMPTOMS/DIAGNOSIS: CHEST PAIN PA AND LATERAL CHEST: The examination is compared with previous examination of 05/27. Note is again made of multiple blastic lesions of the spine consistent with known osteoblastic metastases. Cardiac size is within normal limits. No change from the previous examination. Lungs are clear. No pleural effusion seen. CONCLUSION: No evidence of acute process. Multiple osteoblastic metastases as previously noted.
[2019-06-03 12:06] LABS: Absolute Monocyte Count 1.01 k/cumm (0.11-0.7); Absolute Neutrophil Count 47.38 k/cumm (1.2-6.7)
[2019-06-03 12:09] LABS: Anisocytosis 2+; Diff Comment Manual Differential
[2019-06-03 12:12] LABS: D-Dimer 879 ng/mlFEU (<500)
[2019-06-03] MEDS: Normal Saline 1,000 ML 1000 ML IV (12:31)
--- NOTE | 2019-06-03 13:28 | DI.CT_ITS ---
SYMPTOMS/DIAGNOSIS: PLEURITIC PAIN, ELEVATED D-DIMER CT ANGIOGRAPHY, CHEST: CT angiography of the chest was performed according to the usual protocol. 100 cc of Omnipaque 350 was injected intravenously. Images obtained through the upper abdomen show cholelithiasis. There is unremarkable appearance of visualized portions of the liver, spleen, pancreas, adrenals and kidneys. Visualized abdominal aorta appears intact, as do renal arteries, SMA and celiac trunk. Thoracic aorta is of normal diameter and there is no evidence of dissection. No evidence of pulmonary embolic disease. No mediastinal or hilar adenopathy. Tracheobronchial tree appears intact. Lungs appear clear. No pleural effusion or pleural-based mass. Previously described apparent pericardial cyst or other collection seen posterior to the heart on the left has increased in size in comparison with the previous chest CT of 12/22/17 and 03/11/18 and now measures about 3.5 cm in thickness as compared to about 2 cm on the previous examination. This is a finding of uncertain significance; the possibility of malignant seeding of pericardial cyst not excluded. 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 Little overall change in appearance in comparison with the previous examinations. CONCLUSION: 1. No evidence of pulmonary embolic disease. 2. 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 3. Interval increase in size of apparent cystic lesion of the pericardium on the left; this finding is of uncertain significance, but the possibility of malignant seeding of the pericardial cyst is not excluded. No evidence of cardiac compression. 4. Cholelithiasis.
[2019-06-03] MEDS: Omnipaque 350 MG/ML 100 ML BTL IJ (13:31)
[2019-06-03 14:55] LABS: Troponin I < 0.05 ng/mL (0.00-0.06)
== END 2019-06-03 15:59 | disposition home or self-care (01) ==
PROVIDERS: Emergency Provider Physician Assistant; PCP Nurse Practitioner Family
DX: R07.89 Other chest pain (principal); X50.1XXA Overexertion from prolonged static or awkward postures, initial encounter; D72.829 Elevated white blood cell count, unspecified; R79.1 Abnormal coagulation profile; Z79.899 Other long term (current) drug therapy; C79.51 Secondary malignant neoplasm of bone
CPT/HCPCS: 36415; 71275; 80053; 93005; 96360; 99285; 71046; 83735; 84484; 85025; 85379; 85610; 85730; 93010; J3490

== ENCOUNTER 2019-06-21 08:51 | Outpatient (CLI) | payer MEDICAID, SELFPAY ==
[2019-06-21 09:22] LABS: Abs Immature Grans 0.02 k/cumm (0.0-0.09); Absolute Basophil Count 0.01 k/cumm (0.0-0.2); Absolute Eosinophil Count 0.05 k/cumm (0.0-0.7); Absolute Lymphocyte Count 0.53 k/cumm (1.2-3.4); Absolute Monocyte Count 0.43 k/cumm (0.11-0.7); Absolute Neutrophil Count 4.15 k/cumm (1.2-6.7); Basophils % 0.2; HCT 23.5 % (40.0-50.0); HGB 7.9 g/dL (13.5-17.5); Immature Grans % 0.4; Lymphocytes % 10.2; Mean Corp. HGB Concentration 33.6 g/dL (32.0-36.0); Mean Corpuscular Hemoglobin 31.3 pg (27.0-33.0); Mean Corpuscular Volume 93.3 fL (80-95); Mean Platelet Volume 8.9 fL (8.0-11.0); Monocytes % 8.3; Neutrophils % 79.9; RBC 2.52 m/cumm (4.50-6.00); RBC Distribution Width 20.4 % (11.8-14.1); White Blood Cell Count 5.19 k/cumm (4.4-10.8)
[2019-06-21 09:39] LABS: ALT 36 U/L (16-63); AST 20 U/L (15-37); Albumin 3.7 g/dL (3.4-5.0); Alkaline Phosphatase 131 U/L (46-116); Anion Gap 10.2 mmol/L (3-11); BUN 19 mg/dL (7-18); Bilirubin, Total 0.3 mg/dL (0.2-1.0); CO2 25.8 mmol/L (21.0-32.0); CREATININE 1.22 mg/dL (0.70-1.30); Calcium 8.7 mg/dL (8.5-10.1); Chloride 104 mmol/L (98-107); Estimated GFR 59.99 (mL/min/1.73m2); Glucose 108 mg/dL (70-100); Potassium 3.8 mmol/L (3.5-5.1); Sodium 140 mmol/L (136-145); Total Protein 7.2 g/dL (6.4-8.2)
[2019-06-21 09:43] LABS: Platelet Count 93 x1000/uL (130-400)
[2019-06-21 09:44] LABS: Anisocytosis 3+; Diff Comment RBC Morph Reviewed; Macrocytosis 1+; Microcytosis 1+; Polychromasia Present
[2019-06-22 10:31] LABS: PSA, Diagnostic 4.8 ng/ml (0-4.5)
[2019-06-24 09:41] LABS: Testosterone, Total <7.0 ng/dL (240-950)
== END 2019-06-21 09:11 ==
PROVIDERS: PCP Nurse Practitioner Family; Visit Provider Internal Medicine
DX: C61 Malignant neoplasm of prostate (principal); C79.51 Secondary malignant neoplasm of bone
CPT/HCPCS: 36415; 80053; 84403; 86850; 86900; 86901; 86920; 84153; 85025

== ENCOUNTER 2019-06-21 11:13 | Outpatient (RCR) | payer MEDICAID, SELFPAY ==
[2019-06-21] VITALS (8 sets, daily range): BP systolic 112–147; BP diastolic 72–87; PULSE 65–80; RESP 18; TEMP 36.1–36.7; O2SAT 94–99
== END 2019-06-25 23:59 | disposition home or self-care (01) ==
LOC: INF 11:13
PROVIDERS: PCP Nurse Practitioner Family; Visit Provider Internal Medicine
DX: C61 Malignant neoplasm of prostate (principal); D64.9 Anemia, unspecified
CPT/HCPCS: 36415; 36430; 86850; 86900; 86901; 86920; 86945; P9016

== ENCOUNTER 2019-06-28 08:50 | Outpatient (CLI) | payer MEDICAID, SELFPAY ==
[2019-06-28 09:16] LABS: Abs Immature Grans 0.01 k/cumm (0.0-0.09); Absolute Basophil Count 0.02 k/cumm (0.0-0.2); Absolute Eosinophil Count 0.11 k/cumm (0.0-0.7); Absolute Lymphocyte Count 0.52 k/cumm (1.2-3.4); Absolute Monocyte Count 0.35 k/cumm (0.11-0.7); Absolute Neutrophil Count 3.38 k/cumm (1.2-6.7); Basophils % 0.5; Eosinophils % 2.5; HCT 32.8 % (40.0-50.0); HGB 11.2 g/dL (13.5-17.5); Immature Grans % 0.2; Lymphocytes % 11.8; Mean Corp. HGB Concentration 34.1 g/dL (32.0-36.0); Mean Corpuscular Hemoglobin 31.4 pg (27.0-33.0); Mean Corpuscular Volume 91.9 fL (80-95); Mean Platelet Volume 8.2 fL (8.0-11.0); Platelet Count 290 x1000/uL (130-400); RBC 3.57 m/cumm (4.50-6.00); RBC Distribution Width 18.3 % (11.8-14.1); White Blood Cell Count 4.39 k/cumm (4.4-10.8)
[2019-06-28 09:32] LABS: ALT 34 U/L (16-63); AST 24 U/L (15-37); Albumin 3.7 g/dL (3.4-5.0); Alkaline Phosphatase 116 U/L (46-116); BUN 20 mg/dL (7-18); Bilirubin, Total 0.4 mg/dL (0.2-1.0); CREATININE 1.31 mg/dL (0.70-1.30); Calcium 8.5 mg/dL (8.5-10.1); Chloride 105 mmol/L (98-107); Estimated GFR 55.26 (mL/min/1.73m2); Glucose 143 mg/dL (70-100); Potassium 3.7 mmol/L (3.5-5.1); Sodium 141 mmol/L (136-145); Total Protein 7.2 g/dL (6.4-8.2)
[2019-06-29 11:16] LABS: PSA, Diagnostic 4.5 ng/ml (0-4.5)
[2019-06-30 11:15] LABS: Testosterone, Total 7.1 ng/dL (240-950)
== END 2019-06-28 09:10 ==
PROVIDERS: PCP Nurse Practitioner Family; Visit Provider Internal Medicine
DX: C61 Malignant neoplasm of prostate (principal); C79.51 Secondary malignant neoplasm of bone
CPT/HCPCS: 36415; 80053; 84403; 84153; 85025

== ENCOUNTER 2019-06-30 03:54 | Outpatient (CLI) | payer MEDICAID, SELFPAY ==
--- NOTE | 2019-06-30 07:30 | MERGE_ITS ---
*[facility]* *[facility]* [address] [place] [address] Date of study: 06/30/2019 Transthoracic Echocardiography M-mode, complete 2D, complete spectral Doppler, and color Doppler *STUDY CONCLUSIONS* Summary: 1. Left ventricle: The cavity size was normal. Wall thickness was increased in a pattern of moderate LVH. Systolic function was hyperdynamic. The estimated ejection fraction was 65-70%. There was no evidence of elevated ventricular filling pressure by Doppler parameters. 2. Ventricular septum: Septal motion showed paradoxical motion. 3. Aortic valve: There was mild regurgitation. 4. Mitral valve: There was mild regurgitation. 5. Right ventricle: The cavity size was normal. Wall thickness was normal. Systolic function was normal. 6. Pulmonary arteries: Pulmonary systolic pressure was in the range of 30mm Hg to 40mm Hg. 7. Inferior vena cava: The vessel was patent and normal in size. The respirophasic diameter changes were in the normal range (greater than or equal to 50%), consistent with normal central venous pressure. 8. Pericardium, extracardiac: Cannot rule out moderate size localized posterior pericardial effusion measures 2.2 cm largest dimension. Features were not consistent with tamponade physiology. *PATIENT PRESENTATION* Height: 165.1cm (65in ) S/D Pressure: 107 / 70 Weight: 81.6kg (179.6lb ) BSA: 1.96m^2 Test start time: 07:45 AM. Test stop time: 08:45 AM. REFERRING Jose Styles MD PERFORMING Unknown CONSULTING Bertin Shea ORDERING Devitskiy, BertinBertin Garcia PERFORMING [facility] INCLUSION MANAGER Laura Hoppe, RT (R)(CT), RDCS *PROCEDURE DATA* Procedure information: The patient was identified by two identifiers. This study was interpreted by [facility]. Pertinent images and digital data are archived for permanent storage and are available for subsequent review. Comparison was made to the study of 09/20/2014. Study status: Routine. Transthoracic echocardiography. M-mode, complete 2D, complete spectral Doppler, and color Doppler. A Transthoracic Echocardiogram was performed. Scanning was performed from the parasternal, apical, subcostal, and suprasternal notch acoustic windows. Images were obtained using an [id number] cardiac ultrasound machine. Image quality was adequate. Study completion: The patient tolerated the procedure well. History: PMH: Prostate cancer mets to multiple sites. C61. Chest pain. R07.9. *CARDIAC ANATOMY* Left ventricle: The cavity size was normal. Wall thickness was increased in a pattern of moderate LVH. Systolic function was hyperdynamic. The estimated ejection fraction was 65-70%. The tissue Doppler parameters were normal. Diastolic parameters were normal. There was no evidence of elevated ventricular filling pressure by Doppler parameters. Aortic valve: Trileaflet. Doppler: There was no stenosis. There was mild regurgitation. VTI ratio of LVOT to aortic valve: 0.79. Valve area (VTI): 2.5cm^2. Indexed valve area (VTI): 1.3cm^2/m^2. Peak velocity ratio of LVOT to aortic valve: 0.81. Valve area (Vmax): 2.6cm^2. Indexed valve area (Vmax): 1.3cm^2/m^2. Mean velocity ratio of LVOT to aortic valve: 0.72. Valve area (Vmean): 2.3cm^2. Indexed valve area (Vmean): 1.2cm^2/m^2. Mean gradient (S): 5.9mm Hg. Peak gradient (S): 8.6mm Hg. Aorta: Aortic root: The aortic root was normal in size. Ascending aorta: The ascending aorta was moderately dilated. Mitral valve: Doppler: There was no evidence for stenosis. There was mild regurgitation. Valve area by pressure half-time: 3.7cm^2. Indexed valve area by pressure half-time: 1.9cm^2/m^2. Peak gradient (D): 3.8mm Hg. Left atrium: The atrium was normal in size. Atrial septum: Poorly visualized. Right ventricle: The cavity size was normal. Wall thickness was normal. Systolic function was normal. Ventricular septum: Septal motion showed paradoxical motion. Pulmonic valve: Doppler: There was no evidence for stenosis. There was mild regurgitation. Peak gradient (S): 6mm Hg. Tricuspid valve: Doppler: There was mild regurgitation. Pulmonary artery: Poorly visualized. Pulmonary systolic pressure was in the range of 30mm Hg to 40mm Hg. Right atrium: The atrium was normal in size. Pericardium: Cannot rule out moderate size localized posterior pericardial effusion measures 2.2 cm largest dimension. Doppler: Features were not consistent with tamponade physiology. Systemic veins: Inferior vena cava: Well visualized. The vessel was patent and normal in size. The respirophasic diameter changes were in the normal range (greater than or equal to 50%), consistent with normal central venous pressure. Baseline ECG: Normal sinus rhythm. Measurements Left ventricle Value Reference LV ID, ED, PLAX 4.7 cm 3.5 - 6.0 LV ID, ES, PLAX 3.0 cm 2.1 - 4.0 LV PW thickness, ED, PLAX 1.3 cm LV end-diastolic volume, 1-p A2C 75 ml LV ejection fraction, 1-p A2C 70 % LV end-diastolic volume, 1-p A4C 94 ml LV ejection fraction, 1-p A4C 72 % LV e', lateral 0.093 m/sec LV E/e', lateral 10 LV e', medial 0.102 m/sec LV E/e', medial 10 LV e', average 0.098 m/sec LV E/e', average 10 Ventricular septum Value Reference IVS thickness, ED, PLAX 1.3 cm LVOT Value Reference LVOT ID, A-P 2.0 cm LVOT area 3.2 cm^2 LVOT peak velocity, S 1.19 m/sec LVOT mean velocity, S 0.84 m/sec LVOT VTI, S 24.4 cm LVOT peak gradient, S 5.7 mm Hg LVOT mean gradient, S 3.3 mm Hg Stroke volume (SV), LVOT DP 79 ml Stroke index (SV/bsa), LVOT DP 40 ml/m^2 Aortic valve Value Reference Aortic valve peak velocity, S 1.5 m/sec Aortic valve mean velocity, S 1.2 m/sec Aortic valve VTI, S 31.0 cm Aortic mean gradient, S 5.9 mm Hg Aortic peak gradient, S 8.6 mm Hg VTI ratio, LVOT/AV 0.79 Aortic valve area, VTI 2.5 cm^2 Velocity ratio, peak, LVOT/AV 0.81 Aortic valve area, peak velocity 2.6 cm^2 Velocity ratio, mean, LVOT/AV 0.72 Aortic valve area, mean velocity 2.3 cm^2 Aortic valve area/bsa, mean velocity 1.2 cm^2/m^2 Aorta Value Reference Aortic root ID, ED 3.5 cm Ascending aorta ID, A-P, S 4.2 cm RVOT Value Reference RVOT VTI, S 20.3 cm Left atrium Value Reference LA ID, A-P, ES 3.8 cm LA ID/bsa, A-P 1.9 cm/m^2 <=2.2 LA volume/bsa, ES, 1-p A4C 31 ml/m^2 LA volume, ES, 2-p 57 ml LA volume/bsa, ES, 2-p 29 ml/m^2 LA/aortic root ratio 1.08 Mitral valve Value Reference Mitral E-wave peak velocity 0.97 m/sec Mitral A-wave peak velocity 0.92 m/sec Mitral deceleration time 204 ms 150 - 230 Mitral pressure half-time 59 ms Mitral peak gradient, D 3.8 mm Hg Mitral E/A ratio, peak 1.06 Mitral valve area, PHT, DP 3.7 cm^2 Pulmonary veins Value Reference Pulmonary vein peak velocity, S 0.65 m/sec Pulmonary vein peak velocity, D 0.45 m/sec Pulmonary vein velocity ratio, peak, 1.43 S/D Pulmonary vein A-wave reversal peak 0.32 m/sec velocity Pulmonary vein A-wave reversal 122 ms duration Tricuspid valve Value Reference Tricuspid regurg peak velocity 2.9 m/sec Tricuspid peak RV-RA gradient 33.8 mm Hg Right atrium Value Reference RA area, ES, A4C 17.1 cm^2 8.3 - 19.5 Pulmonic valve Value Reference Pulmonic peak gradient, S 6 mm Hg Legend: (L) and (H) adry values outside specified reference range. I have personally reviewed the images and have reviewed and edited the reported findings. Electronically signed by Jose Styles MD 06/30/2019 12:51
== END 2019-06-30 04:14 ==
PROVIDERS: PCP Nurse Practitioner Family; Visit Provider Internal Medicine
DX: R07.9 Chest pain, unspecified (principal); C61 Malignant neoplasm of prostate; I51.7 Cardiomegaly; I08.0 Rheumatic disorders of both mitral and aortic valves
CPT/HCPCS: 93306

== ENCOUNTER 2019-07-13 10:11 | Outpatient (CLI) | payer MEDICAID, SELFPAY ==
[2019-07-13 11:32] LABS: ALT 39 U/L (16-63); AST 25 U/L (15-37); Albumin 3.8 g/dL (3.4-5.0); Alkaline Phosphatase 173 U/L (46-116); Anion Gap 12.9 mmol/L (3-11); BUN 18 mg/dL (7-18); Bilirubin, Total 0.4 mg/dL (0.2-1.0); CO2 24.1 mmol/L (21.0-32.0); Calcium 8.3 mg/dL (8.5-10.1); Chloride 104 mmol/L (98-107); Glucose 107 mg/dL (70-100); Potassium 3.7 mmol/L (3.5-5.1); Sodium 141 mmol/L (136-145); Total Protein 6.7 g/dL (6.4-8.2)
[2019-07-13 12:52] LABS: Abs Immature Grans 0.02 k/cumm (0.0-0.09); Absolute Basophil Count 0.02 k/cumm (0.0-0.2); Absolute Eosinophil Count 0.06 k/cumm (0.0-0.7); Absolute Lymphocyte Count 0.54 k/cumm (1.2-3.4); Absolute Monocyte Count 0.53 k/cumm (0.11-0.7); Absolute Neutrophil Count 4.52 k/cumm (1.2-6.7); Basophils % 0.4; Eosinophils % 1.1; HCT 30.8 % (40.0-50.0); HGB 10.2 g/dL (13.5-17.5); Immature Grans % 0.4; Lymphocytes % 9.5; Mean Corp. HGB Concentration 33.1 g/dL (32.0-36.0); Mean Corpuscular Hemoglobin 31.5 pg (27.0-33.0); Mean Corpuscular Volume 95.1 fL (80-95); Mean Platelet Volume 9.7 fL (8.0-11.0); Monocytes % 9.3; Neutrophils % 79.3; Platelet Count 117 x1000/uL (130-400); RBC 3.24 m/cumm (4.50-6.00); White Blood Cell Count 5.69 k/cumm (4.4-10.8)
[2019-07-14 11:33] LABS: PSA, Diagnostic 4.1 ng/ml (0-4.5)
[2019-07-16 09:57] LABS: Testosterone, Total <7.0 ng/dL (240-950)
== END 2019-07-13 10:31 ==
PROVIDERS: PCP Nurse Practitioner Family; Visit Provider Internal Medicine
DX: C61 Malignant neoplasm of prostate (principal); C79.51 Secondary malignant neoplasm of bone
CPT/HCPCS: 36415; 80053; 84403; 84153; 85025

== ENCOUNTER 2019-07-28 09:22 | Outpatient (CLI) | payer MEDICAID, SELFPAY ==
[2019-07-28 09:52] LABS: Abs Immature Grans 0.03 k/cumm (0.0-0.09); Absolute Basophil Count 0.01 k/cumm (0.0-0.2); Absolute Lymphocyte Count 0.42 k/cumm (1.2-3.4); Absolute Monocyte Count 0.45 k/cumm (0.11-0.7); Absolute Neutrophil Count 7.17 k/cumm (1.2-6.7); Basophils % 0.1; Eosinophils % 1.2; HCT 29.2 % (40.0-50.0); HGB 9.9 g/dL (13.5-17.5); Immature Grans % 0.4; Lymphocytes % 5.1; Mean Corp. HGB Concentration 33.9 g/dL (32.0-36.0); Mean Corpuscular Hemoglobin 32.9 pg (27.0-33.0); Mean Platelet Volume 8.4 fL (8.0-11.0); Monocytes % 5.5; Neutrophils % 87.7; Platelet Count 171 x1000/uL (130-400); RBC 3.01 m/cumm (4.50-6.00); RBC Distribution Width 16.6 % (11.8-14.1); White Blood Cell Count 8.18 k/cumm (4.4-10.8)
[2019-07-28 10:40] LABS: ALT 28 U/L (16-63); AST 20 U/L (15-37); Albumin 3.9 g/dL (3.4-5.0); Alkaline Phosphatase 224 U/L (46-116); Anion Gap 10.7 mmol/L (3-11); BUN 15 mg/dL (7-18); Bilirubin, Total 0.4 mg/dL (0.2-1.0); CO2 27.3 mmol/L (21.0-32.0); CREATININE 1.16 mg/dL (0.70-1.30); Calcium 8.4 mg/dL (8.5-10.1); Chloride 106 mmol/L (98-107); Glucose 124 mg/dL (70-100); Potassium 3.5 mmol/L (3.5-5.1); Sodium 144 mmol/L (136-145); Total Protein 6.9 g/dL (6.4-8.2)
[2019-07-30 07:56] LABS: Testosterone, Total <7.0 ng/dL (240-950)
== END 2019-07-28 09:42 ==
PROVIDERS: PCP Nurse Practitioner Family; Visit Provider Internal Medicine
DX: C61 Malignant neoplasm of prostate (principal); C79.51 Secondary malignant neoplasm of bone
CPT/HCPCS: 36415; 80053; 84403; 86850; 86900; 86901; 84153; 85025

== ENCOUNTER 2019-08-09 10:13 | Outpatient (CLI) | payer MEDICAID, SELFPAY ==
[2019-08-09 10:46] LABS: Abs Immature Grans 0.07 k/cumm (0.0-0.09); Absolute Basophil Count 0.01 k/cumm (0.0-0.2); Absolute Eosinophil Count 0.04 k/cumm (0.0-0.7); Absolute Lymphocyte Count 0.58 k/cumm (1.2-3.4); Absolute Monocyte Count 0.44 k/cumm (0.11-0.7); Absolute Neutrophil Count 4.19 k/cumm (1.2-6.7); Basophils % 0.2; Eosinophils % 0.8; HCT 27.9 % (40.0-50.0); HGB 9.4 g/dL (13.5-17.5); Immature Grans % 1.3; Lymphocytes % 10.9; Mean Corp. HGB Concentration 33.7 g/dL (32.0-36.0); Mean Corpuscular Hemoglobin 33.5 pg (27.0-33.0); Mean Corpuscular Volume 99.3 fL (80-95); Mean Platelet Volume 8.4 fL (8.0-11.0); Monocytes % 8.3; Neutrophils % 78.5; Platelet Count 144 x1000/uL (130-400); RBC 2.81 m/cumm (4.50-6.00); RBC Distribution Width 16.9 % (11.8-14.1); White Blood Cell Count 5.33 k/cumm (4.4-10.8)
[2019-08-09 10:59] LABS: ALT 22 U/L (16-63); AST 18 U/L (15-37); Albumin 3.8 g/dL (3.4-5.0); Alkaline Phosphatase 125 U/L (46-116); Anion Gap 9.4 mmol/L (3-11); BUN 14 mg/dL (7-18); Bilirubin, Total 0.3 mg/dL (0.2-1.0); CO2 26.6 mmol/L (21.0-32.0); Calcium 8.6 mg/dL (8.5-10.1); Chloride 103 mmol/L (98-107); Glucose 108 mg/dL (70-100); Potassium 4.2 mmol/L (3.5-5.1); Sodium 139 mmol/L (136-145); Total Protein 6.9 g/dL (6.4-8.2)
[2019-08-10 10:18] LABS: PSA, Diagnostic 3.6 ng/ml (0-4.5)
[2019-08-12 10:38] LABS: Testosterone, Total <7.0 ng/dL (240-950)
== END 2019-08-09 10:33 ==
PROVIDERS: PCP Nurse Practitioner Family; Visit Provider Internal Medicine
DX: C61 Malignant neoplasm of prostate (principal); C79.51 Secondary malignant neoplasm of bone
CPT/HCPCS: 36415; 80053; 84403; 84153; 85025

== ENCOUNTER 2019-08-29 01:27 | Outpatient (CLI) | payer MEDICAID, SELFPAY ==
[2019-08-29 08:41] LABS: Absolute Basophil Count 0.01 k/cumm (0.0-0.2); Absolute Eosinophil Count 0.06 k/cumm (0.0-0.7); Absolute Lymphocyte Count 0.43 k/cumm (1.2-3.4); Absolute Monocyte Count 0.29 k/cumm (0.11-0.7); Absolute Neutrophil Count 2.58 k/cumm (1.2-6.7); Basophils % 0.3; Eosinophils % 1.8; HCT 25.1 % (40.0-50.0); HGB 8.5 g/dL (13.5-17.5); Lymphocytes % 12.8; Mean Corp. HGB Concentration 33.9 g/dL (32.0-36.0); Mean Corpuscular Hemoglobin 34.7 pg (27.0-33.0); Mean Corpuscular Volume 102.4 fL (80-95); Mean Platelet Volume 8.8 fL (8.0-11.0); Monocytes % 8.6; Neutrophils % 76.5; RBC 2.45 m/cumm (4.50-6.00); RBC Distribution Width 16.2 % (11.8-14.1); White Blood Cell Count 3.37 k/cumm (4.4-10.8)
[2019-08-29 08:47] LABS: ALT 31 U/L (16-63); AST 21 U/L (15-37); Albumin 4.1 g/dL (3.4-5.0); Alkaline Phosphatase 112 U/L (46-116); Anion Gap 12.8 mmol/L (3-11); BUN 23 mg/dL (7-18); Bilirubin, Total 0.7 mg/dL (0.2-1.0); CO2 24.2 mmol/L (21.0-32.0); CREATININE 1.33 mg/dL (0.70-1.30); Calcium 8.5 mg/dL (8.5-10.1); Chloride 105 mmol/L (98-107); Estimated GFR 54.31 (mL/min/1.73m2); Glucose 102 mg/dL (70-100); Potassium 3.6 mmol/L (3.5-5.1); Sodium 142 mmol/L (136-145); Total Protein 7.1 g/dL (6.4-8.2)
[2019-08-29 08:56] LABS: Anisocytosis 1+; Diff Comment RBC Morph Reviewed; Platelet Count 57 x1000/uL (130-400); Polychromasia Present
[2019-08-29 08:57] LABS: Poikilocytes 1+
--- NOTE | 2019-08-29 09:51 | DI.CT_ITS ---
EXAM: CT CHEST/ABD/PEL W CLINICAL HISTORY: PROSTATE CANCER, METS TO MULTIPLE SITES, C61, RESTAGING TECHNIQUE: Post IV and oral contrast. COMPARISON: ABD PELVIS WITH CONTRAST from 03/11/2018 CT CHEST PE CTA from 06/03/2019 FINDINGS: CHEST CT: AP the AP posterior pericardial cyst is again noted. No adenopathy is identified. There are no infiltrates or effusions. No pulmonary nodules are identified. Is no gross interval change i n widespread sclerotic bony metastases in the spine, ribs and sternum. ABDOMEN AND PELVIC CT: The liver, spleen, pancreas, adrenals and gallbladder are unremarkable. Left renal atrophy and right renal cysts are again noted. Patient is status post prostatectomy. There is bladder wall thickening and trabeculation. No adenopathy is seen. There is no bowel dilatation or inflammatory change. Sclerotic metastases are again noted in the spine, not significantly changed. IMPRESSION: No gross of a interval change in widespread sclerotic bony metastases. No new areas of metastatic di sease are identified.
[2019-08-29] MEDS: Omnipaque 350 MG/ML 100 ML BTL IJ (09:53)
[2019-08-29] MEDS: Omnipaque 350 MG/ML 50 ML BTL IJ (09:54)
[2019-08-30 11:26] LABS: PSA, Diagnostic 3.3 ng/ml (0-4.5)
[2019-08-31 07:58] LABS: Testosterone, Total <7.0 ng/dL (240-950)
== END 2019-08-29 01:47 ==
PROVIDERS: PCP Nurse Practitioner Family; Visit Provider Internal Medicine
DX: C61 Malignant neoplasm of prostate (principal); C79.51 Secondary malignant neoplasm of bone; C77.2 Secondary and unspecified malignant neoplasm of intra-abdominal lymph nodes; C78.00 Secondary malignant neoplasm of unspecified lung; N32.9 Bladder disorder, unspecified; N28.1 Cyst of kidney, acquired
CPT/HCPCS: 74177; 80053; 84403; 71260; 84153; 85025; J3490; Q9967

== ENCOUNTER 2019-08-30 12:03 | Outpatient (RCR) | payer MEDICAID, SELFPAY ==
[2019-08-30 14:26] VITALS: BP 116/72; PULSE 68; RESP 18; TEMP 36.6; O2SAT 98
[2019-08-30 14:34] VITALS: BP 117/75; PULSE 70; RESP 19; TEMP 36.6; O2SAT 98
[2019-08-30 15:06] VITALS: BP 118/77; PULSE 69; RESP 18; TEMP 36.6; O2SAT 99
[2019-08-30 15:20] VITALS: BP 121/80; PULSE 65; RESP 18; TEMP 36.6; O2SAT 95
[2019-08-30 15:57] VITALS: BP 137/79; PULSE 65; RESP 18; TEMP 36.5; O2SAT 99
== END 2019-09-24 23:59 | disposition home or self-care (01) ==
LOC: INF 12:03
PROVIDERS: PCP Nurse Practitioner Family; Visit Provider Internal Medicine
DX: C61 Malignant neoplasm of prostate (principal); D64.9 Anemia, unspecified
CPT/HCPCS: 36415; 36430; 86850; 86900; 86901; 86920; 86945; P9016

== ENCOUNTER 2019-08-30 12:08 | Outpatient (CLI) | payer MEDICAID, SELFPAY | END 2019-08-30 12:28 | PROVIDERS: PCP Nurse Practitioner Family; Visit Provider Internal Medicine | DX: C61 Malignant neoplasm of prostate (principal) | CPT/HCPCS: 36415; 86850; 86900; 86901 ==

== ENCOUNTER 2019-09-02 03:46 | Outpatient (CLI) | payer MEDICAID, SELFPAY ==
--- NOTE | 2019-09-02 10:00 | DI.NM_ITS ---
EXAM: NM BONE SCAN WHOLE BODY GRP CLINICAL HISTORY: PROSTATE CANCER METASTATIC TO MULTIPLE SITES C61, RESTAGING. COMPARISON: WHOLE BODY BONE SCAN from 04/22/2019 EXAMINATION: 24.5 millicuries of technetium 99m MDP were administered IV. Whole body images were o btained. FINDINGS: Continued decrease in the intensity of the bony labeling of the multiple metastatic lesions in the ax ial and appendicular skeleton when compared with the previous exam. IMPRESSION: Decrease in activity of bony metastases.
== END 2019-09-02 04:06 ==
PROVIDERS: PCP Nurse Practitioner Family; Visit Provider Internal Medicine
DX: C61 Malignant neoplasm of prostate (principal); C79.51 Secondary malignant neoplasm of bone
CPT/HCPCS: 78306

== ENCOUNTER 2019-09-12 11:10 | Outpatient (CLI) | payer MEDICAID, SELFPAY ==
[2019-09-12 11:35] LABS: Abs Immature Grans 0.01 k/cumm (0.0-0.09); Absolute Basophil Count 0.01 k/cumm (0.0-0.2); Absolute Eosinophil Count 0.05 k/cumm (0.0-0.7); Absolute Lymphocyte Count 0.52 k/cumm (1.2-3.4); Absolute Monocyte Count 0.39 k/cumm (0.11-0.7); Absolute Neutrophil Count 2.77 k/cumm (1.2-6.7); Basophils % 0.3; Eosinophils % 1.3; HCT 30.7 % (40.0-50.0); HGB 10.1 g/dL (13.5-17.5); Immature Grans % 0.3; Lymphocytes % 13.9; Mean Corp. HGB Concentration 32.9 g/dL (32.0-36.0); Mean Corpuscular Hemoglobin 32.4 pg (27.0-33.0); Mean Corpuscular Volume 98.4 fL (80-95); Mean Platelet Volume 7.9 fL (8.0-11.0); Monocytes % 10.4; Neutrophils % 73.8; RBC 3.12 m/cumm (4.50-6.00); RBC Distribution Width 15.8 % (11.8-14.1); White Blood Cell Count 3.75 k/cumm (4.4-10.8)
[2019-09-12 11:47] LABS: ALT 32 U/L (16-63); AST 36 U/L (15-37); Albumin 3.7 g/dL (3.4-5.0); Alkaline Phosphatase 121 U/L (46-116); Anion Gap 12.1 mmol/L (3-11); BUN 16 mg/dL (7-18); Bilirubin, Total 0.2 mg/dL (0.2-1.0); CO2 24.9 mmol/L (21.0-32.0); CREATININE 1.25 mg/dL (0.70-1.30); Calcium 8.6 mg/dL (8.5-10.1); Chloride 105 mmol/L (98-107); Estimated GFR 58.34 (mL/min/1.73m2); Glucose 114 mg/dL (70-100); Potassium 3.8 mmol/L (3.5-5.1); Sodium 142 mmol/L (136-145)
[2019-09-12 11:52] LABS: Diff Comment PLT Morph Reviewed; Platelet Count 271 x1000/uL (130-400)
[2019-09-12 11:53] LABS: Polychromasia Present
[2019-09-15 10:11] LABS: Testosterone, Total <7.0 ng/dL (240-950)
== END 2019-09-12 11:30 ==
PROVIDERS: PCP Nurse Practitioner Family; Visit Provider Internal Medicine
DX: C61 Malignant neoplasm of prostate (principal); Z79.51 Long term (current) use of inhaled steroids
CPT/HCPCS: 36415; 80053; 84403; 84153; 85025

== ENCOUNTER 2019-09-29 10:50 | Outpatient (CLI) | payer MEDICAID, SELFPAY ==
[2019-09-29 11:27] LABS: Absolute Basophil Count 0.01 k/cumm (0.0-0.2); Absolute Eosinophil Count 0.07 k/cumm (0.0-0.7); Absolute Lymphocyte Count 0.47 k/cumm (1.2-3.4); Absolute Monocyte Count 0.39 k/cumm (0.11-0.7); Absolute Neutrophil Count 2.68 k/cumm (1.2-6.7); Basophils % 0.3; Eosinophils % 1.9; HCT 30.2 % (40.0-50.0); Mean Corp. HGB Concentration 33.1 g/dL (32.0-36.0); Mean Corpuscular Hemoglobin 32.6 pg (27.0-33.0); Mean Corpuscular Volume 98.4 fL (80-95); Mean Platelet Volume 8.7 fL (8.0-11.0); Monocytes % 10.8; Platelet Count 129 x1000/uL (130-400); RBC 3.07 m/cumm (4.50-6.00); White Blood Cell Count 3.62 k/cumm (4.4-10.8)
[2019-09-29 12:14] LABS: ALT 37 U/L (16-63); AST 25 U/L (15-37); Albumin 3.8 g/dL (3.4-5.0); Alkaline Phosphatase 114 U/L (46-116); Anion Gap 11.2 mmol/L (3-11); BUN 16 mg/dL (7-18); Bilirubin, Total 0.3 mg/dL (0.2-1.0); CO2 25.8 mmol/L (21.0-32.0); CREATININE 1.11 mg/dL (0.70-1.30); Calcium 8.7 mg/dL (8.5-10.1); Chloride 106 mmol/L (98-107); Glucose 124 mg/dL (74-106); Potassium 3.5 mmol/L (3.5-5.1); Sodium 143 mmol/L (136-145); Total Protein 6.6 g/dL (6.4-8.2)
[2019-09-30 16:34] LABS: PSA, Diagnostic 2.7 ng/mL (0.0-4.5)
[2019-10-03 10:01] LABS: Testosterone, Total <7.0 ng/dL (240-950)
== END 2019-09-29 11:10 ==
PROVIDERS: PCP Nurse Practitioner Family; Visit Provider Internal Medicine
DX: C61 Malignant neoplasm of prostate (principal); C79.51 Secondary malignant neoplasm of bone
CPT/HCPCS: 36415; 80053; 84403; 84153; 85025

== ENCOUNTER 2019-10-21 11:08 | Outpatient (CLI) | payer MEDICAID, SELFPAY ==
[2019-10-21 11:51] LABS: Absolute Basophil Count 0.01 k/cumm (0.0-0.2); Absolute Eosinophil Count 0.04 k/cumm (0.0-0.7); Absolute Lymphocyte Count 0.53 k/cumm (1.2-3.4); Absolute Monocyte Count 0.31 k/cumm (0.11-0.7); Absolute Neutrophil Count 1.88 k/cumm (1.2-6.7); Basophils % 0.4; Eosinophils % 1.4; HCT 27.9 % (40.0-50.0); HGB 9.6 g/dL (13.5-17.5); Lymphocytes % 19.1; Mean Corp. HGB Concentration 34.4 g/dL (32.0-36.0); Mean Corpuscular Hemoglobin 33.6 pg (27.0-33.0); Mean Corpuscular Volume 97.6 fL (80-95); Mean Platelet Volume 9.8 fL (8.0-11.0); Monocytes % 11.2; Neutrophils % 67.9; RBC 2.86 m/cumm (4.50-6.00); White Blood Cell Count 2.77 k/cumm (4.4-10.8)
[2019-10-21 12:03] LABS: Anisocytosis 1+; Diff Comment PLT Morph Reviewed; Platelet Count 73 x1000/uL (130-400); Polychromasia Present
[2019-10-21 12:54] LABS: ALT 34 U/L (16-63); AST 23 U/L (15-37); Albumin 3.8 g/dL (3.4-5.0); Alkaline Phosphatase 130 U/L (46-116); Anion Gap 11.7 mmol/L (3-11); BUN 18 mg/dL (7-18); Bilirubin, Total 0.4 mg/dL (0.2-1.0); CO2 26.3 mmol/L (21.0-32.0); CREATININE 1.19 mg/dL (0.70-1.30); Calcium 8.4 mg/dL (8.5-10.1); Chloride 105 mmol/L (98-107); Glucose 104 mg/dL (74-106); Potassium 3.8 mmol/L (3.5-5.1); Sodium 143 mmol/L (136-145); Total Protein 6.7 g/dL (6.4-8.2)
[2019-10-24 11:37] LABS: PSA, Diagnostic 2.5 ng/mL (0.0-4.5)
[2019-10-25 01:59] LABS: Testosterone, Total <7.0 ng/dL (240-950)
== END 2019-10-21 11:28 ==
PROVIDERS: PCP Nurse Practitioner Family; Visit Provider Internal Medicine
DX: C61 Malignant neoplasm of prostate (principal); C79.51 Secondary malignant neoplasm of bone
CPT/HCPCS: 36415; 80053; 84403; 84153; 85025

== ENCOUNTER 2019-10-31 10:58 | Outpatient (CLI) | payer MEDICAID, SELFPAY ==
[2019-10-31 12:09] LABS: Abs Immature Grans 0.04 k/cumm (0.0-0.09); Absolute Basophil Count 0.01 k/cumm (0.0-0.2); Absolute Lymphocyte Count 0.55 k/cumm (1.2-3.4); Absolute Monocyte Count 0.53 k/cumm (0.11-0.7); Absolute Neutrophil Count 3.14 k/cumm (1.2-6.7); Basophils % 0.2; Eosinophils % 2.3; HCT 28.3 % (40.0-50.0); HGB 9.6 g/dL (13.5-17.5); Immature Grans % 0.9 %; Lymphocytes % 12.6; Mean Corp. HGB Concentration 33.9 g/dL (32.0-36.0); Mean Corpuscular Volume 97.3 fL (80-95); Mean Platelet Volume 8.9 fL (8.0-11.0); Monocytes % 12.1; Neutrophils % 71.9; RBC 2.91 m/cumm (4.50-6.00); RBC Distribution Width 15.1 % (11.8-14.1); White Blood Cell Count 4.37 k/cumm (4.4-10.8)
[2019-10-31 12:11] LABS: Platelet Count 236 x1000/uL (130-400)
[2019-10-31 12:41] LABS: ALT 56 U/L (16-63); AST 42 U/L (15-37); Albumin 3.7 g/dL (3.4-5.0); Alkaline Phosphatase 144 U/L (46-116); Anion Gap 12.9 mmol/L (3-11); BUN 15 mg/dL (7-18); Bilirubin, Total 0.3 mg/dL (0.2-1.0); CO2 25.1 mmol/L (21.0-32.0); CREATININE 1.17 mg/dL (0.70-1.30); Calcium 8.6 mg/dL (8.5-10.1); Chloride 104 mmol/L (98-107); Glucose 114 mg/dL (74-106); Potassium 3.8 mmol/L (3.5-5.1); Sodium 142 mmol/L (136-145); Total Protein 7.1 g/dL (6.4-8.2)
[2019-11-01 16:05] LABS: PSA, Diagnostic 2.4 ng/mL (0.0-4.5)
[2019-11-04 10:31] LABS: Testosterone, Total <7.0 ng/dL (240-950)
== END 2019-10-31 11:18 ==
PROVIDERS: PCP Nurse Practitioner Family; Visit Provider Internal Medicine
DX: C61 Malignant neoplasm of prostate (principal); C79.51 Secondary malignant neoplasm of bone
CPT/HCPCS: 36415; 80053; 84403; 84153; 85025

== ENCOUNTER 2019-11-28 11:43 | Outpatient (CLI) | payer MEDICAID, SELFPAY ==
[2019-11-28 12:06] LABS: Absolute Basophil Count 0.01 k/cumm (0.0-0.2); Absolute Eosinophil Count 0.13 k/cumm (0.0-0.7); Absolute Lymphocyte Count 0.46 k/cumm (1.2-3.4); Absolute Monocyte Count 0.38 k/cumm (0.11-0.7); Absolute Neutrophil Count 2.94 k/cumm (1.2-6.7); Basophils % 0.3; Eosinophils % 3.3; HCT 25.5 % (40.0-50.0); HGB 8.3 g/dL (13.5-17.5); Lymphocytes % 11.7; Mean Corp. HGB Concentration 32.5 g/dL (32.0-36.0); Mean Corpuscular Hemoglobin 32.5 pg (27.0-33.0); Mean Platelet Volume 8.5 fL (8.0-11.0); Monocytes % 9.7; Platelet Count 155 x1000/uL (130-400); RBC 2.55 m/cumm (4.50-6.00); RBC Distribution Width 15.7 % (11.8-14.1); White Blood Cell Count 3.92 k/cumm (4.4-10.8)
[2019-11-28 12:59] LABS: ALT 56 U/L (16-63); AST 56 U/L (15-37); Albumin 3.6 g/dL (3.4-5.0); Alkaline Phosphatase 112 U/L (46-116); Anion Gap 11.6 mmol/L (3-11); BUN 19 mg/dL (7-18); Bilirubin, Total 0.3 mg/dL (0.2-1.0); CO2 24.4 mmol/L (21.0-32.0); CREATININE 1.33 mg/dL (0.70-1.30); Calcium 7.9 mg/dL (8.5-10.1); Chloride 106 mmol/L (98-107); Estimated GFR 54.13 (mL/min/1.73m2); Glucose 99 mg/dL (74-106); Potassium 3.7 mmol/L (3.5-5.1); Sodium 142 mmol/L (136-145); Total Protein 6.2 g/dL (6.4-8.2)
[2019-11-29 09:59] LABS: PSA, Diagnostic 2.3 ng/mL (0.0-4.5)
[2019-11-30 09:03] LABS: Testosterone, Total <7.0 ng/dL (240-950)
== END 2019-11-28 12:03 ==
PROVIDERS: PCP Nurse Practitioner Family; Visit Provider Internal Medicine
DX: C61 Malignant neoplasm of prostate (principal); C79.51 Secondary malignant neoplasm of bone
CPT/HCPCS: 36415; 80053; 84403; 84153; 85025

== ENCOUNTER 2019-11-29 10:57 | Outpatient (CLI) | payer MEDICAID, SELFPAY | END 2019-11-29 11:17 | PROVIDERS: PCP Nurse Practitioner Family; Visit Provider Nurse Practitioner Adult Health | DX: C61 Malignant neoplasm of prostate (principal); D64.81 Anemia due to antineoplastic chemotherapy; T45.1X5A Adverse effect of antineoplastic and immunosuppressive drugs, initial encounter | CPT/HCPCS: 36415; 86850; 86900; 86901; 86920 ==

== ENCOUNTER 2019-11-30 02:33 | Outpatient (RCR) | payer MEDICAID, SELFPAY ==
[2019-11-30] VITALS (12 sets, daily range): BP systolic 115–130; BP diastolic 69–81; PULSE 58–80; RESP 18–19; TEMP 36.4–36.7; O2SAT 95–98
[2019-11-30] MEDS: Normal Saline Flush 10 ML SYR IVP (13:40)
== END 2019-12-24 23:59 | disposition home or self-care (01) ==
LOC: INF 02:33
PROVIDERS: PCP Nurse Practitioner Family; Visit Provider Internal Medicine Hematology & Oncology
DX: C61 Malignant neoplasm of prostate (principal); D63.0 Anemia in neoplastic disease
CPT/HCPCS: 36415; 36430; 86850; 86900; 86901; 86920; P9016

== ENCOUNTER 2019-12-05 12:48 | Outpatient (CLI) | payer MEDICAID, SELFPAY ==
[2019-12-05 13:12] LABS: Absolute Basophil Count 0.02 k/cumm (0.0-0.2); Absolute Eosinophil Count 0.09 k/cumm (0.0-0.7); Absolute Lymphocyte Count 0.68 k/cumm (1.2-3.4); Absolute Monocyte Count 0.47 k/cumm (0.11-0.7); Absolute Neutrophil Count 3.61 k/cumm (1.2-6.7); Basophils % 0.4; Eosinophils % 1.8; HCT 36.2 % (40.0-50.0); HGB 12.2 g/dL (13.5-17.5); Mean Corp. HGB Concentration 33.7 g/dL (32.0-36.0); Mean Corpuscular Hemoglobin 31.4 pg (27.0-33.0); Mean Corpuscular Volume 93.1 fL (80-95); Mean Platelet Volume 8.4 fL (8.0-11.0); Monocytes % 9.7; Neutrophils % 74.1; Platelet Count 245 x1000/uL (130-400); RBC 3.89 m/cumm (4.50-6.00); RBC Distribution Width 15.8 % (11.8-14.1); White Blood Cell Count 4.87 k/cumm (4.4-10.8)
[2019-12-05 14:02] LABS: ALT 43 U/L (16-63); AST 28 U/L (15-37); Albumin 3.9 g/dL (3.4-5.0); Alkaline Phosphatase 127 U/L (46-116); Anion Gap 11.7 mmol/L (3-11); BUN 20 mg/dL (7-18); Bilirubin, Total 0.3 mg/dL (0.2-1.0); CO2 25.3 mmol/L (21.0-32.0); CREATININE 1.35 mg/dL (0.70-1.30); Calcium 8.9 mg/dL (8.5-10.1); Chloride 104 mmol/L (98-107); Estimated GFR 53.21 (mL/min/1.73m2); Glucose 114 mg/dL (74-106); Potassium 3.8 mmol/L (3.5-5.1); Sodium 141 mmol/L (136-145); Total Protein 6.7 g/dL (6.4-8.2)
[2019-12-06 14:12] LABS: PSA, Diagnostic 2.5 ng/mL (0.0-4.5)
[2019-12-08 08:22] LABS: Testosterone, Total <7.0 ng/dL (240-950)
== END 2019-12-05 13:08 ==
PROVIDERS: PCP Nurse Practitioner Family; Visit Provider Internal Medicine
DX: C61 Malignant neoplasm of prostate (principal); C79.51 Secondary malignant neoplasm of bone
CPT/HCPCS: 36415; 80053; 84403; 84153; 85025

== ENCOUNTER 2019-12-30 09:51 | Outpatient (CLI) | payer MEDICAID, SELFPAY ==
[2019-12-30 10:37] LABS: Abs Immature Grans 0.01 k/cumm (0.0-0.09); Absolute Basophil Count 0.01 k/cumm (0.0-0.2); Absolute Eosinophil Count 0.12 k/cumm (0.0-0.7); Absolute Lymphocyte Count 0.68 k/cumm (1.2-3.4); Absolute Monocyte Count 0.45 k/cumm (0.11-0.7); Absolute Neutrophil Count 4.07 k/cumm (1.2-6.7); Basophils % 0.2; Eosinophils % 2.2; HCT 32.5 % (40.0-50.0); HGB 10.7 g/dL (13.5-17.5); Immature Grans % 0.2 %; Lymphocytes % 12.7; Mean Corp. HGB Concentration 32.9 g/dL (32.0-36.0); Mean Corpuscular Hemoglobin 30.7 pg (27.0-33.0); Mean Corpuscular Volume 93.4 fL (80-95); Mean Platelet Volume 8.9 fL (8.0-11.0); Monocytes % 8.4; Neutrophils % 76.3; Platelet Count 167 x1000/uL (130-400); RBC 3.48 m/cumm (4.50-6.00); RBC Distribution Width 15.7 % (11.8-14.1); White Blood Cell Count 5.34 k/cumm (4.4-10.8)
[2019-12-30 11:26] LABS: ALT 36 U/L (16-63); AST 25 U/L (15-37); Albumin 3.9 g/dL (3.4-5.0); Alkaline Phosphatase 124 U/L (46-116); Anion Gap 9.5 mmol/L (3-11); BUN 13 mg/dL (7-18); Bilirubin, Total 0.2 mg/dL (0.2-1.0); CO2 29.5 mmol/L (21.0-32.0); CREATININE 1.21 mg/dL (0.70-1.30); Calcium 8.5 mg/dL (8.5-10.1); Chloride 103 mmol/L (98-107); Glucose 116 mg/dL (74-106); Potassium 3.9 mmol/L (3.5-5.1); Sodium 142 mmol/L (136-145); Total Protein 6.7 g/dL (6.4-8.2)
[2020-01-02 11:22] LABS: PSA, Diagnostic 2.4 ng/mL (0.0-4.5)
[2020-01-05 10:05] LABS: Testosterone, Total <7.0 ng/dL (240-950)
== END 2019-12-30 10:11 ==
PROVIDERS: PCP Nurse Practitioner Family; Visit Provider Internal Medicine
DX: C61 Malignant neoplasm of prostate (principal); C79.51 Secondary malignant neoplasm of bone
CPT/HCPCS: 36415; 80053; 84403; 84153; 85025

== ENCOUNTER 2020-02-07 00:14 | Outpatient (CLI) | payer MEDICAID, SELFPAY ==
[2020-02-07 09:20] LABS: Abs Immature Grans 0.03 k/cumm (0.0-0.09); Absolute Basophil Count 0.03 k/cumm (0.0-0.2); Absolute Lymphocyte Count 0.99 k/cumm (1.2-3.4); Absolute Monocyte Count 0.55 k/cumm (0.11-0.7); Absolute Neutrophil Count 4.84 k/cumm (1.2-6.7); Basophils % 0.4; Eosinophils % 4.5; HCT 32.7 % (40.0-50.0); HGB 10.9 g/dL (13.5-17.5); Immature Grans % 0.4 %; Lymphocytes % 14.7; Mean Corp. HGB Concentration 33.3 g/dL (32.0-36.0); Mean Corpuscular Hemoglobin 31.3 pg (27.0-33.0); Mean Platelet Volume 8.6 fL (8.0-11.0); Monocytes % 8.2; Neutrophils % 71.8; Platelet Count 265 x1000/uL (130-400); RBC 3.48 m/cumm (4.50-6.00); RBC Distribution Width 14.5 % (11.8-14.1); White Blood Cell Count 6.74 k/cumm (4.4-10.8)
[2020-02-07 09:33] LABS: ALT 37 U/L (16-63); AST 22 U/L (15-37); Albumin 3.7 g/dL (3.4-5.0); Alkaline Phosphatase 111 U/L (46-116); Anion Gap 12.6 mmol/L (3-11); BUN 21 mg/dL (7-18); Bilirubin, Total 0.4 mg/dL (0.2-1.0); CO2 24.4 mmol/L (21.0-32.0); CREATININE 1.34 mg/dL (0.70-1.30); Chloride 103 mmol/L (98-107); Estimated GFR 53.67 (mL/min/1.73m2); Glucose 111 mg/dL (74-106); Potassium 3.8 mmol/L (3.5-5.1); Sodium 140 mmol/L (136-145); Total Protein 7.3 g/dL (6.4-8.2)
--- NOTE | 2020-02-07 10:21 | DI.CT_ITS ---
EXAM: CT CHEST/ABD/PEL W CLINICAL HISTORY: PROSTATE CA METASTATIC TO MULT SITES, C61, RESTAGING EXAM TECHNIQUE: Imaging Protocol: Axial computed tomography images with coronal and sagittal reformatted images were created and reviewed CONTRAST MATERIAL: Intravenous: Omnipaque 350 Contrast volume: 100 ml Oral: yes COMPARISON: ABD PELVIS WITH CONTRAST from 03/11/2018 CT CHEST PE CTA from 06/03/2019 CT CHEST/ABD/PEL W from 08/29/2019 FINDINGS: CHEST: Tracheobronchial tree: Patent where visualized. Mediastinum and Stephanie: No dominant adenopathy or fluid collection. There is a stable fluid collection adjacent to the left aspect of the heart which may represent a pericardial cyst. Pulmonary parenchyma: No consolidation or dominant measurable mass. No architectural distortion. Pleura: No effusion or pneumothorax. Heart: The heart is not dilated. No coronary artery calcifications are seen. Aorta: Thoracic aorta non-dilated. Minimal atherosclerosis. Lymph nodes: Within normal limits. Bones:Widespread osseous metastatic disease. ABDOMEN: Liver: Normal density. No measurable mass. Portal, Superior Mesenteric, and Splenic Veins: Unremarkable. Gallbladder and Biliary Tract: No radiodense calculus or dilation. Pancreas: Normal density, no abnormal calcifications or inflammatory process. Spleen: Normal. Adrenals: No masses seen. Kidneys: Stable renal cortical atrophy left greater than right. No radiodense stones or obstructive uropathy. Stable bilateral renal cysts. No solid renal mass. Abdominal Aorta: Abdominal portion non-dilated. Atherosclerosis. Bowel: No obstruction or bowel wall thickening. Appendix is unremarkable. There is colonic diverticul osis but no evidence of acute diverticulitis. Peritoneal Cavity: No ascites, collection or mesenteric inflammatory response. Lymph Nodes: There has been interval development of soft tissue in the left retroperitoneum adjacent to the external iliac vessels mass measures 3.2 x 2.1 cm. This is suspicious for adenopathy. Bones: There is again seen diffuse sclerotic metastatic disease. Soft Tissues: Unremarkable. PELVIS: Bladder: There is diffuse bladder wall thickening again noted. Reproductive Organs: The patient appears status post prostatectomy. Lymph Nodes: Please see above. Bones: There again seen diffuse sclerotic metastases. IMPRESSION: 1. Diffuse osseous sclerotic metastatic disease. 2. Development of a 3.2 x 2.1 cm soft tissue mass adjacent to the left external iliac vessels suspici ous for adenopathy or metastatic disease. RADIATION DOSE DELIVERED: DATA REPOSITORY: All CT scans at this facility are submitted to the National Radiology Data Registry (NRDR) Dose Index Registry (DIR) with the [employer] (ACR). RADIATION OPTIMIZATION: All CT scans at this facility use at least one of these dose optimization te chniques: automated exposure control; mA and/or kV adjustment per patient size (includes targeted exa ms where dose is matched to clinical indication); or iterative reconstruction.
[2020-02-07] MEDS: Omnipaque 350 MG/ML 100 ML BTL IJ (10:23)
[2020-02-07] MEDS: Normal Saline - Diluent 50 ML VIAL IV (10:23)
[2020-02-08 14:24] LABS: PSA, Ultrasensitive 4.2 ng/mL (<= 4.5)
[2020-02-09 12:02] LABS: Testosterone, Total 7.9 ng/dL (240-950)
== END 2020-02-07 00:34 ==
PROVIDERS: PCP Nurse Practitioner Family; Visit Provider Internal Medicine
DX: C61 Malignant neoplasm of prostate (principal); C79.51 Secondary malignant neoplasm of bone; Z12.89 Encounter for screening for malignant neoplasm of other sites; C77.2 Secondary and unspecified malignant neoplasm of intra-abdominal lymph nodes; K57.30 Diverticulosis of large intestine without perforation or abscess without bleeding; N32.89 Other specified disorders of bladder; R19.09 Other intra-abdominal and pelvic swelling, mass and lump
CPT/HCPCS: 74177; 80053; 84153; 84403; 71260; 85025; J3490

== ENCOUNTER 2020-02-17 09:27 | Outpatient (CLI) | payer MEDICAID, SELFPAY ==
--- NOTE | 2020-02-17 09:00 | DI.NM_ITS ---
EXAM: NM BONE SCAN WHOLE BODY GRP CLINICAL HISTORY: PROSTATE CA METASTATIC TO MULTIPLE SITES,C61, RESTAGING EXAM. TECHNIQUE: Injected Dose: 24 mCi Tc-99m MDP Delayed Images: 2-3 hours. COMPARISON: WHOLE BODY BONE SCAN from 12/22/2017 NM BONE SCAN WHOLE BODY GRP from 09/02/2019 CT CHEST/ABD/PEL W from 02/07/2020 CT CHEST/ABD/PEL W from 02/07/2020 FINDINGS: Multiple foci of abnormal bony labeling is again noted in the axial and appendicular skeleton. There has been interval decrease in the previously noted activity seen in the sternum well as decreased a ctivity of lesions in the thoracic spine. No new areas increased activity is seen.. Bilateral renal excretion is identified. IMPRESSION: 1. Continued decrease in amount of activity within multiple metastatic lesions in the spine and arguelles um. DATA REPOSITORY:
== END 2020-02-17 09:47 ==
PROVIDERS: PCP Nurse Practitioner Family; Visit Provider Internal Medicine
DX: C61 Malignant neoplasm of prostate (principal); C79.51 Secondary malignant neoplasm of bone
CPT/HCPCS: 78306

== ENCOUNTER 2020-02-21 01:02 | Outpatient (CLI) | payer MEDICAID, SELFPAY ==
[2020-02-21 07:21] LABS: Abs Immature Grans 0.01 k/cumm (0.0-0.09); Absolute Basophil Count 0.01 k/cumm (0.0-0.2); Absolute Eosinophil Count 0.24 k/cumm (0.0-0.7); Absolute Monocyte Count 0.41 k/cumm (0.11-0.7); Basophils % 0.1; Eosinophils % 3.1; HCT 31.4 % (40.0-50.0); HGB 10.4 g/dL (13.5-17.5); Immature Grans % 0.1 %; Lymphocytes % 11.7; Mean Corp. HGB Concentration 33.1 g/dL (32.0-36.0); Mean Corpuscular Hemoglobin 30.6 pg (27.0-33.0); Mean Corpuscular Volume 92.4 fL (80-95); Mean Platelet Volume 8.4 fL (8.0-11.0); Monocytes % 5.3; Neutrophils % 79.7; Platelet Count 230 x1000/uL (130-400); RBC Distribution Width 13.7 % (11.8-14.1); White Blood Cell Count 7.67 k/cumm (4.4-10.8)
== END 2020-02-21 01:22 ==
PROVIDERS: PCP Nurse Practitioner Family; Visit Provider Nurse Practitioner Adult Health
DX: C61 Malignant neoplasm of prostate (principal); D64.81 Anemia due to antineoplastic chemotherapy; T45.1X5A Adverse effect of antineoplastic and immunosuppressive drugs, initial encounter
CPT/HCPCS: 36415; 86900; 86901; 85025

== ENCOUNTER 2020-03-09 02:13 | Outpatient (CLI) | payer MEDICAID, SELFPAY ==
[2020-03-09 09:27] LABS: Abs Immature Grans 0.01 k/cumm (0.0-0.09); Absolute Basophil Count 0.01 k/cumm (0.0-0.2); Absolute Eosinophil Count 0.13 k/cumm (0.0-0.7); Absolute Lymphocyte Count 0.73 k/cumm (1.2-3.4); Absolute Monocyte Count 0.38 k/cumm (0.11-0.7); Absolute Neutrophil Count 2.82 k/cumm (1.2-6.7); Basophils % 0.2; Eosinophils % 3.2; HCT 30.6 % (40.0-50.0); HGB 9.9 g/dL (13.5-17.5); Immature Grans % 0.2 %; Lymphocytes % 17.9; Mean Corp. HGB Concentration 32.4 g/dL (32.0-36.0); Mean Corpuscular Hemoglobin 30.4 pg (27.0-33.0); Mean Corpuscular Volume 93.9 fL (80-95); Mean Platelet Volume 9.1 fL (8.0-11.0); Monocytes % 9.3; Neutrophils % 69.2; Platelet Count 186 x1000/uL (130-400); RBC 3.26 m/cumm (4.50-6.00); RBC Distribution Width 14.9 % (11.8-14.1); White Blood Cell Count 4.08 k/cumm (4.4-10.8)
[2020-03-09 09:53] LABS: ALT 53 U/L (16-63); AST 34 U/L (15-37); Albumin 3.7 g/dL (3.4-5.0); Alkaline Phosphatase 128 U/L (46-116); Anion Gap 9.6 mmol/L (3-11); BUN 25 mg/dL (7-18); Bilirubin, Total 0.4 mg/dL (0.2-1.0); CO2 25.4 mmol/L (21.0-32.0); CREATININE 1.35 mg/dL (0.70-1.30); Calcium 8.4 mg/dL (8.5-10.1); Chloride 103 mmol/L (98-107); Estimated GFR 53.21 (mL/min/1.73m2); Glucose 109 mg/dL (74-106); Potassium 3.7 mmol/L (3.5-5.1); Sodium 138 mmol/L (136-145); Total Protein 6.8 g/dL (6.4-8.2)
[2020-03-12 13:02] LABS: PSA, Ultrasensitive 5.4 ng/mL (<= 4.5)
== END 2020-03-09 02:33 ==
PROVIDERS: PCP Nurse Practitioner Family; Visit Provider Internal Medicine
DX: C61 Malignant neoplasm of prostate (principal)
CPT/HCPCS: 36415; 80053; 84153; 85025

== ENCOUNTER 2020-04-09 02:01 | Outpatient (CLI) | payer MEDICAID, SELFPAY ==
[2020-04-09 13:59] LABS: ALT 28 U/L (16-63); AST 20 U/L (15-37); Albumin 3.7 g/dL (3.4-5.0); Alkaline Phosphatase 103 U/L (46-116); Anion Gap 11.2 mmol/L (3-11); BUN 18 mg/dL (7-18); Bilirubin, Total 0.3 mg/dL (0.2-1.0); CO2 25.8 mmol/L (21.0-32.0); CREATININE 1.39 mg/dL (0.70-1.30); Calcium 8.9 mg/dL (8.5-10.1); Chloride 101 mmol/L (98-107); Estimated GFR 51.45 (mL/min/1.73m2); Glucose 135 mg/dL (74-106); Potassium 3.1 mmol/L (3.5-5.1); Sodium 138 mmol/L (136-145); Total Protein 7.2 g/dL (6.4-8.2)
[2020-04-09 14:02] LABS: Abs Immature Grans 0.02 k/cumm (0.0-0.09); Absolute Basophil Count 0.01 k/cumm (0.0-0.2); Absolute Eosinophil Count 0.13 k/cumm (0.0-0.7); Absolute Monocyte Count 0.38 k/cumm (0.11-0.7); Absolute Neutrophil Count 4.31 k/cumm (1.2-6.7); Basophils % 0.2; Eosinophils % 2.3; HCT 29.9 % (40.0-50.0); HGB 10.2 g/dL (13.5-17.5); Immature Grans % 0.4 %; Lymphocytes % 14.2; Mean Corp. HGB Concentration 34.1 g/dL (32.0-36.0); Mean Corpuscular Hemoglobin 31.5 pg (27.0-33.0); Mean Corpuscular Volume 92.3 fL (80-95); Mean Platelet Volume 8.8 fL (8.0-11.0); Monocytes % 6.7; Neutrophils % 76.2; Platelet Count 255 x1000/uL (130-400); RBC 3.24 m/cumm (4.50-6.00); RBC Distribution Width 14.9 % (11.8-14.1); White Blood Cell Count 5.65 k/cumm (4.4-10.8)
[2020-04-10 18:08] LABS: PSA, Ultrasensitive 6.6 ng/mL (<= 4.5)
== END 2020-04-09 02:21 ==
PROVIDERS: PCP Nurse Practitioner Family; Visit Provider Internal Medicine
DX: C61 Malignant neoplasm of prostate (principal); D64.81 Anemia due to antineoplastic chemotherapy; T45.1X5A Adverse effect of antineoplastic and immunosuppressive drugs, initial encounter
CPT/HCPCS: 36415; 80053; 84153; 86900; 86901; 85025

== ENCOUNTER 2020-04-23 02:25 | Outpatient (CLI) | payer MEDICAID, SELFPAY ==
[2020-04-23 12:49] LABS: Abs Immature Grans 0.01 k/cumm (0.0-0.09); Absolute Basophil Count 0.01 k/cumm (0.0-0.2); Absolute Eosinophil Count 0.06 k/cumm (0.0-0.7); Absolute Lymphocyte Count 0.78 k/cumm (1.2-3.4); Absolute Monocyte Count 0.46 k/cumm (0.11-0.7); Absolute Neutrophil Count 3.91 k/cumm (1.2-6.7); Basophils % 0.2; Eosinophils % 1.1; HCT 29.7 % (40.0-50.0); HGB 10.1 g/dL (13.5-17.5); Immature Grans % 0.2 %; Lymphocytes % 14.9; Mean Corpuscular Hemoglobin 31.7 pg (27.0-33.0); Mean Corpuscular Volume 93.1 fL (80-95); Mean Platelet Volume 8.8 fL (8.0-11.0); Monocytes % 8.8; Neutrophils % 74.8; Platelet Count 147 x1000/uL (130-400); RBC 3.19 m/cumm (4.50-6.00); RBC Distribution Width 15.2 % (11.8-14.1); White Blood Cell Count 5.23 k/cumm (4.4-10.8)
[2020-04-23 13:02] LABS: ALT 32 U/L (16-63); AST 18 U/L (15-37); Albumin 3.7 g/dL (3.4-5.0); Alkaline Phosphatase 109 U/L (46-116); BUN 21 mg/dL (7-18); Bilirubin, Total 0.3 mg/dL (0.2-1.0); CREATININE 1.28 mg/dL (0.70-1.30); Calcium 9.1 mg/dL (8.5-10.1); Chloride 99 mmol/L (98-107); Estimated GFR 56.58 (mL/min/1.73m2); Glucose 155 mg/dL (74-106); Potassium 3.3 mmol/L (3.5-5.1); Sodium 136 mmol/L (136-145); Total Protein 7.5 g/dL (6.4-8.2)
[2020-04-24 17:09] LABS: PSA, Ultrasensitive 8.1 ng/mL (<= 4.5)
== END 2020-04-23 02:45 ==
PROVIDERS: PCP Nurse Practitioner Family; Visit Provider Internal Medicine
DX: C61 Malignant neoplasm of prostate (principal); D64.81 Anemia due to antineoplastic chemotherapy; T45.1X5A Adverse effect of antineoplastic and immunosuppressive drugs, initial encounter
CPT/HCPCS: 36415; 80053; 84153; 86900; 86901; 85025

== ENCOUNTER 2020-04-24 02:08 | Outpatient (RCR) | payer MEDICAID, SELFPAY | END 2020-04-24 23:59 | disposition home or self-care (01) | LOC: INF 02:08 | PROVIDERS: PCP Nurse Practitioner Family; Visit Provider Internal Medicine | DX: R69 Illness, unspecified (principal) ==

== ENCOUNTER 2020-05-07 01:35 | Outpatient (CLI) | payer MEDICAID, SELFPAY ==
[2020-05-07 12:06] LABS: Abs Immature Grans 0.02 k/cumm (0.0-0.09); Absolute Basophil Count 0.01 k/cumm (0.0-0.2); Absolute Eosinophil Count 0.12 k/cumm (0.0-0.7); Absolute Lymphocyte Count 0.87 k/cumm (1.2-3.4); Absolute Monocyte Count 0.54 k/cumm (0.11-0.7); Absolute Neutrophil Count 4.21 k/cumm (1.2-6.7); Basophils % 0.2; Eosinophils % 2.1; HCT 30.3 % (40.0-50.0); HGB 10.1 g/dL (13.5-17.5); Immature Grans % 0.3 %; Lymphocytes % 15.1; Mean Corp. HGB Concentration 33.3 g/dL (32.0-36.0); Mean Corpuscular Hemoglobin 31.2 pg (27.0-33.0); Mean Corpuscular Volume 93.5 fL (80-95); Mean Platelet Volume 8.1 fL (8.0-11.0); Monocytes % 9.4; Neutrophils % 72.9; Platelet Count 235 x1000/uL (130-400); RBC 3.24 m/cumm (4.50-6.00); RBC Distribution Width 16.4 % (11.8-14.1); White Blood Cell Count 5.77 k/cumm (4.4-10.8)
[2020-05-07 12:22] LABS: ALT 28 U/L (16-63); AST 22 U/L (15-37); Albumin 3.8 g/dL (3.4-5.0); Alkaline Phosphatase 108 U/L (46-116); Anion Gap 13.2 mmol/L (3-11); BUN 18 mg/dL (7-18); Bilirubin, Total 0.3 mg/dL (0.2-1.0); CO2 24.8 mmol/L (21.0-32.0); CREATININE 1.38 mg/dL (0.70-1.30); Calcium 8.8 mg/dL (8.5-10.1); Chloride 99 mmol/L (98-107); Estimated GFR 51.88 (mL/min/1.73m2); Glucose 112 mg/dL (74-106); Potassium 3.5 mmol/L (3.5-5.1); Sodium 137 mmol/L (136-145); Total Protein 7.6 g/dL (6.4-8.2)
[2020-05-08 16:55] LABS: PSA, Ultrasensitive 8.2 ng/mL (<= 4.5)
== END 2020-05-07 01:55 ==
PROVIDERS: PCP Nurse Practitioner Family; Visit Provider Internal Medicine
DX: C61 Malignant neoplasm of prostate (principal); D64.81 Anemia due to antineoplastic chemotherapy; T45.1X5A Adverse effect of antineoplastic and immunosuppressive drugs, initial encounter
CPT/HCPCS: 36415; 80053; 84153; 86900; 86901; 85025

== ENCOUNTER 2020-05-22 01:57 | Outpatient (RCR) | payer MEDICAID, SELFPAY | END 2020-05-25 23:59 | disposition home or self-care (01) | LOC: INF 01:57 | PROVIDERS: PCP Nurse Practitioner Family; Visit Provider Internal Medicine | DX: R69 Illness, unspecified (principal) ==

== ENCOUNTER 2020-06-04 02:34 | Outpatient (CLI) | payer MEDICAID, SELFPAY ==
[2020-06-04 10:23] LABS: Abs Immature Grans 0.01 10^3/uL (0.0-0.06); Absolute Basophil Count 0.01 10^3/uL (0.0-0.2); Absolute Eosinophil Count 0.16 10^3/uL (0.0-0.7); Absolute Lymphocyte Count 0.59 10^3/uL (1.2-3.4); Absolute Neutrophil Count 3.54 10^3/uL (1.2-6.7); Basophils % 0.2; Eosinophils % 3.4; HCT 27.8 % (40.0-50.0); HGB 9.1 g/dL (13.5-17.5); Immature Grans % 0.2; Lymphocytes % 12.5; MCH 32.2 pg (27.0-33.0); MCHC 32.7 % (32.0-36.0); MCV 98.2 fL (80-95); MPV 8.6 fL (8.0-11.0); Monocytes % 8.5; Neutrophils % 75.2; Nucleated RBC 0 %; Platelet Count 179 10^3/uL (130-400); RBC 2.83 10^6/uL (4.36-5.78); RDW 16.1 % (11.8-14.1); RDW-SD 57.9 fL; WBC 4.71 10^3/uL (4.4-10.8)
[2020-06-04 10:48] LABS: ALT 26 U/L (16-63); AST 6 U/L (15-37); Albumin 3.5 g/dL (3.4-5.0); Alkaline Phosphatase 101 U/L (46-116); Anion Gap 12.7 mmol/L (3-11); BUN 14 mg/dL (7-18); Bilirubin, Total 0.3 mg/dL (0.2-1.0); CO2 24.3 mmol/L (21.0-32.0); CREATININE 1.24 mg/dL (0.70-1.30); Calcium 8.6 mg/dL (8.5-10.1); Chloride 102 mmol/L (98-107); Estimated GFR 58.69 (mL/min/1.73m2); Glucose 126 mg/dL (74-106); Potassium 3.7 mmol/L (3.5-5.1); Sodium 139 mmol/L (136-145); Total Protein 7.2 g/dL (6.4-8.2)
[2020-06-05 15:18] LABS: PSA, Ultrasensitive 9.8 ng/mL (<= 4.5)
== END 2020-06-04 02:54 ==
PROVIDERS: PCP Nurse Practitioner Family; Visit Provider Internal Medicine
DX: C61 Malignant neoplasm of prostate (principal); D64.81 Anemia due to antineoplastic chemotherapy; T45.1X5A Adverse effect of antineoplastic and immunosuppressive drugs, initial encounter
CPT/HCPCS: 36415; 80053; 84153; 86850; 86900; 86901; 85025

== ENCOUNTER 2020-06-19 01:27 | Outpatient (RCR) | payer MEDICAID, SELFPAY ==
[2020-06-19 10:12] LABS: Abs Immature Grans 0.03 10^3/uL (0.0-0.06); Absolute Basophil Count 0.02 10^3/uL (0.0-0.2); Absolute Eosinophil Count 0.26 10^3/uL (0.0-0.7); Absolute Lymphocyte Count 0.91 10^3/uL (1.2-3.4); Absolute Monocyte Count 0.62 10^3/uL (0.1-0.8); Basophils % 0.3; HCT 27.9 % (40.0-50.0); HGB 9.2 g/dL (13.5-17.5); Immature Grans % 0.5; Lymphocytes % 13.9; MCH 31.9 pg (27.0-33.0); MCV 96.9 fL (80-95); MPV 8.5 fL (8.0-11.0); Monocytes % 9.5; Neutrophils % 71.8; Nucleated RBC 0 %; Platelet Count 211 10^3/uL (130-400); RBC 2.88 10^6/uL (4.36-5.78); RDW 14.8 % (11.8-14.1); RDW-SD 53.1 fL; WBC 6.54 10^3/uL (4.4-10.8)
[2020-06-19 10:37] LABS: ALT 26 U/L (16-63); AST 24 U/L (15-37); Albumin 3.6 g/dL (3.4-5.0); Alkaline Phosphatase 116 U/L (46-116); Anion Gap 6.5 mmol/L (3-11); BUN 21 mg/dL (7-18); Bilirubin, Total 0.4 mg/dL (0.2-1.0); CO2 26.5 mmol/L (21.0-32.0); CREATININE 1.42 mg/dL (0.70-1.30); Calcium 9.5 mg/dL (8.5-10.1); Chloride 103 mmol/L (98-107); Estimated GFR 50.19 (mL/min/1.73m2); Glucose 132 mg/dL (74-106); Potassium 3.6 mmol/L (3.5-5.1); Sodium 136 mmol/L (136-145); Total Protein 7.4 g/dL (6.4-8.2)
[2020-06-20 11:51] LABS: PSA, Ultrasensitive 11.5 ng/mL (<= 4.5)
== END 2020-06-25 23:59 | disposition home or self-care (01) ==
LOC: INF 01:27
PROVIDERS: PCP Nurse Practitioner Family; Visit Provider Internal Medicine
DX: C61 Malignant neoplasm of prostate (principal); C79.89 Secondary malignant neoplasm of other specified sites
CPT/HCPCS: 36415; 80053; 84153; 85025

== ENCOUNTER 2020-06-19 13:02 | Outpatient (REF) | payer MEDICAID, SELFPAY ==
[2020-06-19 13:32] LABS: Bilirubin Negative (Negative); Blood Trace-lysed (Negative); Clarity Clear (Clear); Glucose Negative (Negative); Ketones Negative (Negative); Leukocyte Esterase Negative (Negative); Nitrite Negative (Negative); Urobilinogen 0.2 EU/dL (Up TO 0.2)
[2020-06-19 13:45] LABS: Bacteria Negative HPF (Negative); C & S Indicated? No; Casts Negative LPF (Negative); Crystals Negative HPF (Negative); Epithelial Cells Rare HPF (Negative); Mucus Negative (Negative); WBC 0-2 HPF (0-5)
== END 2020-06-19 13:22 ==
LOC: LBN 13:02
PROVIDERS: PCP Nurse Practitioner Family; Visit Provider Nurse Practitioner Family
DX: C61 Malignant neoplasm of prostate (principal)
CPT/HCPCS: 81003; 81015

== ENCOUNTER 2020-06-20 08:43 | Outpatient (CLI) | payer MEDICAID, SELFPAY ==
--- NOTE | 2020-06-19 | DI.US_ITS ---
EXAM: US LOWER EXTREMITY VENOUS LT CLINICAL HISTORY: ? DVT, PAIN, SWELLING. TECHNIQUE: Ultrasound performed using standard protocol. COMPARISON: US Cardiac from 06/30/2019 FINDINGS: Duplex venous ultrasound was performed according to the usual protocol. The deep veins are freely com pressible throughout and there is normal flow augmentation with manual calf compression. 2D and Doppl er evaluation are unremarkable. IMPRESSION: No evidence of deep venous thrombosis of the left lower extremity DATA REPOSITORY:
== END 2020-06-20 09:03 ==
PROVIDERS: PCP Nurse Practitioner Family; Visit Provider Nurse Practitioner Family
DX: R22.42 Localized swelling, mass and lump, left lower limb (principal); M79.605 Pain in left leg
CPT/HCPCS: 93971

== ENCOUNTER 2020-06-29 02:36 | Outpatient (CLI) | payer MEDICAID, SELFPAY ==
[2020-06-29 16:13] LABS: Abs Immature Grans 0.06 10^3/uL (0.0-0.06); Absolute Basophil Count 0.02 10^3/uL (0.0-0.2); Absolute Eosinophil Count 0.33 10^3/uL (0.0-0.7); Absolute Lymphocyte Count 0.96 10^3/uL (1.2-3.4); Absolute Monocyte Count 0.58 10^3/uL (0.1-0.8); Absolute Neutrophil Count 6.27 10^3/uL (1.2-6.7); Basophils % 0.2; HCT 27.6 % (40.0-50.0); HGB 9.1 g/dL (13.5-17.5); Immature Grans % 0.7; Lymphocytes % 11.7; MCH 31.2 pg (27.0-33.0); MCV 94.5 fL (80-95); MPV 8.5 fL (8.0-11.0); Monocytes % 7.1; Neutrophils % 76.3; Nucleated RBC 0 %; Platelet Count 239 10^3/uL (130-400); RBC 2.92 10^6/uL (4.36-5.78); RDW 14.4 % (11.8-14.1); WBC 8.22 10^3/uL (4.4-10.8)
[2020-06-29 17:01] LABS: ALT 28 U/L (16-63); AST 30 U/L (15-37); Albumin 3.3 g/dL (3.4-5.0); Alkaline Phosphatase 131 U/L (46-116); BUN 22 mg/dL (7-18); Bilirubin, Total 0.4 mg/dL (0.2-1.0); CREATININE 1.32 mg/dL (0.70-1.30); Calcium 9.1 mg/dL (8.5-10.1); Chloride 98 mmol/L (98-107); Estimated GFR 54.61 (mL/min/1.73m2); Glucose 107 mg/dL (74-106); Potassium 3.7 mmol/L (3.5-5.1); Sodium 135 mmol/L (136-145); Total Protein 7.1 g/dL (6.4-8.2)
[2020-07-03 16:10] LABS: PSA, Ultrasensitive 12.5 ng/mL (<= 4.5)
== END 2020-06-29 02:56 ==
PROVIDERS: PCP Nurse Practitioner Family; Visit Provider Internal Medicine
DX: C61 Malignant neoplasm of prostate (principal); D64.81 Anemia due to antineoplastic chemotherapy; T45.1X5A Adverse effect of antineoplastic and immunosuppressive drugs, initial encounter
CPT/HCPCS: 36415; 80053; 84153; 86850; 86900; 86901; 85025

== ENCOUNTER 2020-07-05 01:25 | Outpatient (CLI) | payer MEDICAID, SELFPAY ==
--- NOTE | 2020-07-05 | DI.CT_ITS ---
EXAM: CT CHEST/ABD/PEL W CLINICAL HISTORY: PROSTATE CA METASTATIC, C61, ASSESS TREATMENT RESPONSE. TECHNIQUE: Imaging Protocol: Axial computed tomography images with coronal and sagittal reformatted images were created and reviewed CONTRAST MATERIAL: Intravenous: Omnipaque 350 Contrast volume:100 cc Oral: yes COMPARISON: CT CT CHEST/ABD/PEL W from 02/07/2020 FINDINGS: CHEST: Mediastinum and Stephanie: No dominant adenopathy. Stable pericardial cyst posterior to the left ventricl e. Pulmonary parenchyma: No consolidation or dominant measurable mass. No architectural distortion. Pleura: No effusion or pneumothorax. Lymph nodes: Within normal limits. Aorta: Ascending aorta measures 4.1 cm. Mild atherosclerotic changes. Heart: Normal size. Bones: Widespread bony metastases. ABDOMEN: Liver: Normal density. There are new liver lesions. The largest is seen anteriorly in the right lob e measuring 3.1 cm in maximal dimension. Additional lateral upper right lobe lesion is seen measurin g 16 millimeters. There are a few other smaller low-density lesions, suspicious for metastases. Gallbladder and biliary tract: There are a few tiny gallstones. There is no biliary dilatation. Pancreas: Normal density, no abnormal calcifications or inflammatory process. Spleen: Normal. Kidneys: The left kidney is again noted to be atrophic and has a lobulated appearance. There is now severe left hydronephrosis. The ureter is dilated down to the level of the pelvic adenopathy. No ma sses seen. Adrenal glands: No masses seen. Aorta: Abdominal portion non-dilated. Lymph nodes: Interval enlargement of multiple left paraaortic lymph nodes, measuring on the order of 15-18 millimeters in size. There has been interval increase in size of the previously noted soft tis linda density around the external iliac vessels. Measurements are now approximately 7.8 x 3.4 x 5.6 cm . It has an infiltrative appearance and is surrounding the vessels. There is probable thrombosis of the external iliac through common femoral vein. PELVIS: Bladder: The left side of the bladder wall now appears invaded by mass. The inferior portion of the bladder may also be invaded by the mass. Bowel: No obstruction or bowel wall thickening. Peritoneal cavity: No ascites, collection or mesenteric inflammatory response. Bones: Widespread bony metastases. Bilateral L5 pars defects. Reproductive organs: Patient is status post prostatectomy. IMPRESSION: Chest: Widespread bony metastases. No adenopathy or pulmonary metastases. Abdomen and Pelvis: Interval increase in size of previously noted left pelvic adenopathy with invasio n into the left side of the bladder causing left hydronephrosis as well as vascular encasement. There is apparent deep venous thrombosis involving the external iliac through common femoral veins. There is increased left paraaortic adenopathy as well as new metastatic liver lesions. Widespread bony meta stases are roughly stable. The findings were called to Dr. Shea. RADIATION DOSE DELIVERED: Total DLP DATA REPOSITORY: All CT scans at this facility are submitted to the National Radiology Data Registry (NRDR) Dose Index Registry (DIR) with the [employer] (ACR). RADIATION OPTIMIZATION: All CT scans at this facility use at least one of these dose optimization te chniques: automated exposure control; mA and/or kV adjustment per patient size (includes targeted exa ms where dose is matched to clinical indication); or iterative reconstruction.
[2020-07-05] MEDS: Omnipaque 350 MG/ML 50 ML BTL IJ (12:01)
== END 2020-07-05 01:45 ==
PROVIDERS: PCP Nurse Practitioner Family; Visit Provider Internal Medicine
DX: C79.51 Secondary malignant neoplasm of bone (principal); C61 Malignant neoplasm of prostate
CPT/HCPCS: 74177; 71260; Q9967

== ENCOUNTER 2020-07-13 02:58 | Outpatient (CLI) | payer MEDICAID, SELFPAY ==
--- NOTE | 2020-07-13 | DI.NM_ITS ---
EXAM: [place] BONE SCAN WHOLE BODY GRP CLINICAL HISTORY: PROSTATE CA METASTATIC TO MULTIPLE SITES,C61,RESTAGING EXAM. COMPARISON: [facility] BONE SCAN WHOLE BODY GRP from 02/17/2020 EXAMINATION: Whole body bone scan was performed intravenous infusion 24.9 millicuries of technetium 90 labeled methylene diphosphonate. Patient reportedly has known metastatic prostate carcinoma. Exa mination is compared with examination of February 16. There is a new finding apparent left hydronephrosis and hydroureter suggesting a distal left ureteral obstruction. There are waxing and waning areas of focal increased uptake in the thoracic spine, a prominent marked ly increased area of increased uptake is seen in T9 vertebral body. Question mild increase uptake in right and left SI joint regions comparison with previous examination, however this may just be due t o differences in technique. Multiple peripheral areas of increased a uptake in the lower extremities , no gross interval changeFrom prior study. FINDINGS: Waxing and waning areas of bony uptake in thoracic spine, marked interval increase in T9 vertebral body uptake. New finding of apparent left hydronephrosis and hydroureter suggesting distal ureteral obstruction. IMPRESSION:
== END 2020-07-13 03:18 ==
PROVIDERS: PCP Nurse Practitioner Family; Visit Provider Internal Medicine
DX: C61 Malignant neoplasm of prostate (principal); N13.30 Unspecified hydronephrosis
CPT/HCPCS: 78306

== ENCOUNTER 2020-07-20 11:11 | Emergency (ER) | payer MEDICAID, SELFPAY ==
[2020-07-20 11:21] VITALS: BP 132/73; PULSE 99; RESP 14; TEMP 36.2; O2SAT 97
--- NOTE | 2020-07-20 11:32 | ED.GENADUL_ITS ---
Discharge Plan Disposition Patient Disposition: HOME Condition: Stable Discharge Details Clinical Impression: Hematuria Primary Care Provider: Mary Holland ED Provider: Kellee Rico Home Meds and New Rx's Prescriptions: New cephalexin 500 mg tablet 500 mg PO BID 7 Days Qty: 14 RF: 0 Continued celecoxib 200 mg capsule 200 mg PO BID RF: 0 potassium chloride 10 mEq capsule, extended release 10 meq PO DAILY RF: 0 calcium-vitamin D3-vitamin K 1 EACH tablet,chewable 1 ea PO DAILY Qty: 90 RF: 3 amlodipine 10 MG tablet 10 mg PO DAILY RF: 0 lisinopril [Zestril] 30 MG tablet 30 mg PO QAM RF: 0 tamsulosin 0.4 mg capsule 0.4 mg PO BID RF: 0 Discharge Instructions Instructions: Hematuria (ED) Additional Instructions: Call and follow up with urology in 1-2 weeks. Continue taking your Eliquis as previously prescribed. Return to the ER if any difficulty urinating, feeling that your bladder is distended, fever, chills, vomiting.Call your urologist office for follow up. Referrals: Curt Dorsey MD [ [facility] STAFF PHYSICIAN] - Mary Holland [Primary Care Provider] - Medical Decision Making 64-year-old male presents to the ER with a chief complaint of hematuria. Patient has a history of prostate cancer with mets to the bone. He reports last night he noted blood in his urine. And inability to urinate. He did use a self cath last night and was able to urinate and did notice some clots. He denies any bladder distention but feels that he could still urinate. He has had to self cath in the past but not for a number of years. He is still making urine on his own. Upon arrival he does have grossly bloody urine output. No clots no rafael in the urine cup. Denies any abdominal pain, nausea vomiting diarrhea he does take senna for constipation daily. No fever. He sees urology at [facility] Dr. Munroe. Other past medical history includes aortic stenosis, left lower extremity DVT which he is taking Eliquis for since 07/05/2020. Hypertension vertigo, he is a former smoker. Denies alcohol use. 1138: Informed by staff certified nurse midwife bladder scan shows 255 mL post void residual. 1216: Informed by staff certified nurse midwife , they are unable to place three-way Carlos catheter they are meeting resistance. 1223: Call made to [facility] [place] consult with urology regarding patient, [facility] [place] is closed to adult transfers at this time. 1226: Page to our urologist Dr. Dorsey. Dr. Dorsey is out of town x 1 week. 1320: Spoke with Dr. Valverde with [facility] [place] [place], discussed patient case in details with him, he states that since patient is able to void on his own and only has approximately 255 mils of post void residual at this time it is safe for him to be discharged home with follow-up with urology. Discussed plan of care with patient who verbalizes understanding. Will do 1 more bladder scan prior to discharge home. Patient does state that since attempting Carlos catheterization patient was able to void on his own here in department. , His labs are largely within normal limits. Or at his baseline. White blood cell count is 4.27, hemoglobin is 8.7 which last result was 9.1 on June 29, hematocrit was 27 which they did. On June 29, 2020 was 27.6. Urine shows large blood greater than 3 or protein greater than 50 WBCs but no leukocytes no nitrites. Culture is pending at this time. 1334: repeat Bladder scan is 158. Patient is going to try to void on own again. At this time I do agree that patient is stable to be discharged home at this time. HPI General Mode of arrival: ambulatory . Date/Time Provider Initiated Documentation: 07/20/20 11:12 . Limitations to Documentation: no limitations . Information obtained by: patient . HPI Narrative: 64-year-old male presents to the ER with a chief complaint of hematuria. Patient has a history of prostate cancer with mets to the bone. He reports last night he noted blood in his urine. And inability to urinate. He did use a self cath last night and was able to urinate and did notice some clots. He denies any bladder distention but feels that he could still urinate. He has had to self cath in the past but not for a number of years. He is still making urine on his own. Upon arrival he does have grossly bloody urine output. No clots noted in the urine cup. Denies any abdominal pain, nausea vomiting diarrhea he does take senna for constipation daily. No fever. He sees urology at [facility] Dr. Munroe. Other past medical history includes aortic stenosis, left lower extremity DVT which he is taking Eliquis for since 07/05/2020. Hypertension vertigo, he is a former smoker. Denies alcohol use. Related Data Home Medications Medication Instructions Recorded Confirmed calcium-vitamin D3-vitamin K 1 ea PO DAILY #90 tab.chew 04/26/14 07/04/20 amlodipine 10 mg PO DAILY 08/25/14 07/04/20 lisinopril [Zestril] 30 mg PO QAM 05/04/17 07/04/20 tamsulosin 0.4 mg capsule 0.4 mg PO BID cap 03/02/19 07/04/20 celecoxib 200 mg capsule 200 mg PO BID cap 03/07/20 07/04/20 potassium chloride 10 mEq 10 meq PO DAILY 03/07/20 07/04/20 capsule,extended release cephalexin 500 mg PO BID 7 Days #14 tab 07/20/20 Previous Rx's Medication Instructions Recorded cephalexin 500 mg PO BID 7 Days #14 tab 07/20/20 Allergies Allergy/AdvReac Type Severity Reaction Status Date / Time docetaxel Allergy Severe Anaphylaxsi Unverified 07/20/20 11:28 s adhesive tape Allergy Hives Unverified 07/20/20 11:28 oxycodone HCl [From Percocet] AdvReac Intermediate Nausea Unverified 07/20/20 11:28 tramadol AdvReac Intermediate Dizziness/L Unverified 07/20/20 11:28 ightheade Opioids - Morphine Analogues AdvReac Unknown nausea Unverified 07/20/20 11:28 pain killers Allergy Uncoded 07/20/20 11:28 General Stated Complaint: Urinary ADA: 3 Review of Systems Narrative: Constitutional: Negative for weight loss, alert and oriented, well groomed, normal body habitus, appears comfortable. HEENT: Denies trauma, headaches, blurry vision, nasal discharge, sore throat, trouble swallowing. Chest: Denies chest pain, palpitations, irregular rhythm, hypertension. Respiratory: Denies Shortness of breath, cough, hemoptysis. GI: Denies abdominal pain, nausea, vomiting, diarrhea, constipation. : Positive history of prostate cancer, has a history of self cathing, noted hematuria which began last night. Is on Eliquis for left lower extremity DVT. Neuro: Denies dizziness, blurry vision, weakness, syncope, headache or facial numbness. Hematologic: Denies intolerance to heat or cold, hair loss. 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, bone, and lungs Aortic stenosis Bilateral inguinal hernia BPH (benign prostatic hypertrophy) with urinary obstruction History of herpes simplex type 2 infection Hypertension Malignant neoplasm of prostate metastatic to bone Prostate cancer metastatic to multiple sites Tobacco dependence Vertigo Surgical History Arthroplasty of knee Cystoscopy History of orchiectomy, bilateral 03/08/14 Hx of prostate biopsy Rotator Cuff Repair left S/P TURP (status post transurethral resection of prostate) 09/08/14 for obstructive symptoms Family History Mother Pancreatic cancer Brother Colorectal cancer Son No problems noted. Daughter No problems noted. Social History Smoking/Tobacco Use Status: Former Tobacco Use Quit Date: 02/13/16 Alcohol Intake: never Drug use: Never Substance use type: does not use Do you feel safe at home: Yes Do you feel safe in your relationship?: Yes Exam Narrative Exam Narrative: Constitutional: Alert and oriented x3. Appears stated age. Normal body habitus. Head: Normocephalic, no trauma. Eyes: Pupils PERRLA, Red reflex noted, EOM's intact. Eyelids symmetrical without lesions, discharge, or swelling. ENT: Bilateral TM's WNL, External ear normal to inspection, no mastoid TTP, swelling, or erythema, Nasal turbinates WNL, no nasal discharge. Normal dentition, Posterior pharynx WNL, no exudate. Chest: RRR, Normal S1, S2, distal pulses intact. Abdomen: Soft, nondistended. Resp: Lungs clear to auscultation bilaterally, no wheezes, rales, or rhonchi. Musculoskeletal: Normal gait, 5/5 strength to all four extremities. Skin: No suspicious rashes or lesions. Capillary refill less than 2 sec. Neurologic: Cranial nerves II-XII intact. Alert and oriented x 3. DTR's intact. Hematologic/Lymphatic: No ecchymosis, no lymphadenopathy. Course Vital Signs Vital signs: Vital Signs Temperature 36.2 C L 07/20/20 11:21 Pulse 99 H 07/20/20 11:21 Respiratory Rate 14 07/20/20 11:21 Blood Pressure 132/73 07/20/20 11:21 Pulse Oximetry 97 07/20/20 11:21 Temperature 36.2 C L 07/20/20 11:21 Temperature Source Tympanic 07/20/20 11:21 Pulse 99 H 07/20/20 11:21 Respiratory Rate 14 07/20/20 11:21 Respiratory Effort Non-Labored 07/20/20 11:25 Blood Pressure 132/73 07/20/20 11:21 Blood Pressure Position Sitting 07/20/20 11:21 Pulse Oximetry 97 07/20/20 11:21 Oxygen Delivery Method Room Air 07/20/20 11:21 Oxygen Flow Rate 0 07/20/20 11:21 Pain Level 0 07/20/20 11:25
[2020-07-20 12:06] LABS: Abs Immature Grans 0.01 10^3/uL (0.0-0.06); Absolute Basophil Count 0.01 10^3/uL (0.0-0.2); Absolute Lymphocyte Count 0.59 10^3/uL (1.2-3.4); Absolute Monocyte Count 0.35 10^3/uL (0.1-0.8); Basophils % 0.2; Eosinophils % 2.3; HGB 8.7 g/dL (13.5-17.5); Immature Grans % 0.2; Lymphocytes % 13.8; MCH 30.7 pg (27.0-33.0); MCHC 32.2 % (32.0-36.0); MCV 95.4 fL (80-95); MPV 9.8 fL (8.0-11.0); Monocytes % 8.2; Neutrophils % 75.3; Nucleated RBC 0 %; RBC 2.83 10^6/uL (4.36-5.78); RDW 15.6 % (11.8-14.1); RDW-SD 53.6 fL; WBC 4.27 10^3/uL (4.4-10.8)
[2020-07-20 12:07] LABS: Bilirubin Negative (Negative); Blood Large (Negative); Clarity Cloudy (Clear); Glucose Negative (Negative); Ketones Negative (Negative); Leukocyte Esterase Negative (Negative); Nitrite Negative (Negative); Urobilinogen 0.2 EU/dL (Up TO 0.2)
[2020-07-20 12:08] LABS: Absolute Neutrophil Count 3.22 10^3/uL (1.2-6.7)
[2020-07-20 12:18] LABS: Diff Comment PLT Morph Reviewed; Platelet Count 95 10^3/uL (130-400)
[2020-07-20 12:19] LABS: Bacteria Many HPF (Negative); C & S Indicated? Yes; Casts Negative LPF (Negative); Crystals Negative HPF (Negative); Epithelial Cells Negative HPF (Negative); Mucus Negative (Negative); RBC >50 HPF (0-2); WBC >50 HPF (0-5)
[2020-07-20 12:19] LABS: RBC Morphology Normal
[2020-07-20] MEDS: Lidocaine 2% Jelly 11 ML SYR UR (12:21)
--- NOTE | 2020-07-20 12:21 | NUR.NOTE ---
Nursing Note: Multiple attempts made to insert urinary catheter as ordered. Both normal and coude catheter attempted. Both unsuccessful. Provider (Kellee) made aware.
[2020-07-20 12:25] LABS: ALT 24 U/L (16-63); AST 25 U/L (15-37); Albumin 3.4 g/dL (3.4-5.0); Alkaline Phosphatase 114 U/L (46-116); Anion Gap 10.6 mmol/L (3-11); BUN 18 mg/dL (7-18); Bilirubin, Total 0.3 mg/dL (0.2-1.0); CO2 25.4 mmol/L (21.0-32.0); CREATININE 1.34 mg/dL (0.70-1.30); Calcium 9.1 mg/dL (8.5-10.1); Chloride 103 mmol/L (98-107); Estimated GFR 53.67 (mL/min/1.73m2); Glucose 115 mg/dL (74-106); Potassium 3.5 mmol/L (3.5-5.1); Sodium 139 mmol/L (136-145); Total Protein 7.3 g/dL (6.4-8.2)
== END 2020-07-20 13:49 | disposition home or self-care (01) ==
PROVIDERS: Emergency Provider Registered Nurse Emergency; PCP Nurse Practitioner Family
DX: R31.0 Gross hematuria (principal); R33.8 Other retention of urine; C61 Malignant neoplasm of prostate; Z79.01 Long term (current) use of anticoagulants; Z86.718 Personal history of other venous thrombosis and embolism; I10 Essential (primary) hypertension
CPT/HCPCS: 36415; 80053; 99283; 81003; 81015; 85025; 87086

== ENCOUNTER 2020-07-27 03:12 | Outpatient (CLI) | payer MEDICAID, SELFPAY ==
[2020-07-27 12:47] LABS: Abs Immature Grans 0.02 10^3/uL (0.0-0.06); Absolute Basophil Count 0.01 10^3/uL (0.0-0.2); Absolute Eosinophil Count 0.11 10^3/uL (0.0-0.7); Absolute Lymphocyte Count 0.77 10^3/uL (1.2-3.4); Absolute Monocyte Count 0.45 10^3/uL (0.1-0.8); Absolute Neutrophil Count 3.46 10^3/uL (1.2-6.7); Basophils % 0.2; Eosinophils % 2.3; HCT 26.7 % (40.0-50.0); HGB 8.6 g/dL (13.5-17.5); Immature Grans % 0.4; MCH 30.6 pg (27.0-33.0); MCHC 32.2 % (32.0-36.0); Monocytes % 9.3; Neutrophils % 71.8; Nucleated RBC 0 %; Platelet Count 165 10^3/uL (130-400); RBC 2.81 10^6/uL (4.36-5.78); RDW 16.3 % (11.8-14.1); RDW-SD 56.6 fL; WBC 4.82 10^3/uL (4.4-10.8)
[2020-07-27 13:30] LABS: ALT 24 U/L (16-63); AST 27 U/L (15-37); Albumin 3.6 g/dL (3.4-5.0); Alkaline Phosphatase 114 U/L (46-116); Anion Gap 11.8 mmol/L (3-11); BUN 23 mg/dL (7-18); Bilirubin, Total 0.3 mg/dL (0.2-1.0); CO2 24.2 mmol/L (21.0-32.0); CREATININE 1.42 mg/dL (0.70-1.30); Calcium 9.8 mg/dL (8.5-10.1); Chloride 104 mmol/L (98-107); Estimated GFR 50.19 (mL/min/1.73m2); Glucose 107 mg/dL (74-106); Potassium 3.9 mmol/L (3.5-5.1); Sodium 140 mmol/L (136-145); Total Protein 6.9 g/dL (6.4-8.2)
[2020-07-30 13:50] LABS: PSA, Ultrasensitive 19.5 ng/mL (<= 4.5)
== END 2020-07-27 03:32 ==
PROVIDERS: PCP Nurse Practitioner Family; Visit Provider Internal Medicine
DX: C61 Malignant neoplasm of prostate (principal)
CPT/HCPCS: 36415; 80053; 84153; 85025

== ENCOUNTER 2020-08-08 21:31 | Emergency (ER) | payer MEDICAID, SELFPAY ==
[2020-08-08 21:43] VITALS: BP 143/87; PULSE 103; RESP 16; TEMP 36.4; O2SAT 98
--- NOTE | 2020-08-08 21:55 | W.ED.GENAD ---
Discharge Plan Disposition Patient Disposition: HOME Condition: Stable Discharge Details Clinical Impression: Hematuria Primary Care Provider: Mary Holland ED Provider: Jose Kc Home Meds and New Rx's Prescriptions: New oxybutynin chloride 5 mg tablet 5 mg PO TID PRN (Reason: bladder spasms) Qty: 14 RF: 0 Continued celecoxib 200 mg capsule 200 mg PO BID RF: 0 potassium chloride 10 mEq capsule, extended release 10 meq PO DAILY RF: 0 calcium-vitamin D3-vitamin K 1 EACH tablet,chewable 1 ea PO DAILY Qty: 90 RF: 3 amlodipine 10 MG tablet 10 mg PO DAILY RF: 0 Eliquis 5 mg tablet 5 mg PO BID RF: 0 lisinopril [Zestril] 30 MG tablet 30 mg PO QAM RF: 0 tamsulosin 0.4 mg capsule 0.4 mg PO BID RF: 0 Discharge Instructions Additional Instructions: you only had 200cc of urine in your bladder follow up with your urologist at [facility] if you have fevers, severe worsening pain or vomit return to the emergency department Medical Decision Making 64 yo male with hx of prostate cancer and recent problems of feeling as though he is obstructed comes in feeling as though he again can't empty his bladder. He urinated througout the day and the last 5 hours has discomfort in meatus and suprapubic region. Denies fevers, dishcarge, does have hematuria. He was seen a few weeks ago and had 200-300cc of urine in his bladder at that time and they could not place a claros. [place] [facility] [place] require catheter at this time and will f/u. Pt states he was feelin better until tonight. Denies vomit or fevers. He has no abdominal tenderness on exam and appears well. His bladder scan tonight is 200cc. Discussed pros and cons of placing a claros again with the patient and given he has only 200cc he doesn't want to have a claros placed, he has capacity to make his own decisions and is requesting d/c and is going [place] [facility] [place]. He does note some spasm sensations in the bladder area and has not tried oxybutynin so will offer this, return precautions given Differential Diagnosis Differential Diagnosis: uti, kidney stones, prostate cancer HPI General Date/Time Provider Initiated Documentation: 08/08/20 21:32. History of Present Illness 64 year old M presents to the emergency department with the chief complaint of feels like he can't void, and it has been constant. No relieving factors improve symptom(s), No exacerbating factors reported . Patient did receive the following treatments prior to arrival, none Related Data Home Medications Medication Instructions Recorded Confirmed calcium-vitamin D3-vitamin K 1 ea PO DAILY #90 tab.chew 04/26/14 08/08/20 amlodipine 10 mg PO DAILY 08/25/14 08/08/20 lisinopril [Zestril] 30 mg PO QAM 05/04/17 08/08/20 tamsulosin 0.4 mg capsule 0.4 mg PO BID cap 03/02/19 08/08/20 celecoxib 200 mg capsule 200 mg PO BID cap 03/07/20 08/08/20 potassium chloride 10 mEq 10 meq PO DAILY 03/07/20 08/08/20 capsule,extended release Eliquis 5 mg PO BID 08/08/20 08/08/20 oxybutynin chloride 5 mg PO TID PRN #14 tab 08/08/20 Previous Rx's Medication Instructions Recorded oxybutynin chloride 5 mg PO TID PRN #14 tab 08/08/20 Allergies Allergy/AdvReac Type Severity Reaction Status Date / Time docetaxel Allergy Severe Anaphylaxsi Unverified 08/08/20 21:46 s adhesive tape Allergy Hives Unverified 08/08/20 21:46 oxycodone HCl [From Percocet] AdvReac Intermediate Nausea Unverified 08/08/20 21:46 tramadol AdvReac Intermediate Dizziness/L Unverified 08/08/20 21:46 ightheade Opioids - Morphine Analogues AdvReac Unknown nausea Unverified 08/08/20 21:46 pain killers Allergy Uncoded 08/08/20 21:46 General Stated Complaint: Urinary ADA: 4 Review of Systems All systems reviewed & are unremarkable except as noted in HPI and below Constitutional Constitutional: Denies chills, Denies fever(s) and Denies weakness Cardiovascular Cardiovascular: Denies chest pain and Denies dyspnea Respiratory Respiratory: Denies cough and Denies dyspnea Gastrointestinal Gastrointestinal: Denies nausea and Denies vomiting Musculoskeletal Musculoskeletal: Denies joint swelling Neurologic Neurologic: Denies weakness [facility] Medical History (Updated 08/08/20 @ 22:34 by Jose Kc MD) 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, bone, and lungs Aortic stenosis Bilateral inguinal hernia BPH (benign prostatic hypertrophy) with urinary obstruction History of herpes simplex type 2 infection Hypertension Malignant neoplasm of prostate metastatic to bone Prostate cancer metastatic to multiple sites Tobacco dependence Vertigo Surgical History Arthroplasty of knee Cystoscopy History of orchiectomy, bilateral 03/08/14 Hx of prostate biopsy Rotator Cuff Repair left S/P TURP (status post transurethral resection of prostate) 09/08/14 for obstructive symptoms Family History Mother Pancreatic cancer Brother Colorectal cancer Son No problems noted. Daughter No problems noted. Social History Smoking/Tobacco Use Status: Former Tobacco Use Quit Date: 02/13/16 Alcohol Intake: never Drug use: Never Substance use type: does not use Do you feel safe at home: Yes Do you feel safe in your relationship?: Yes Exam Const General: no acute distress Orientation: alert HENMT Head: normal to inspection Ears: external ears normal General nose exam: external nose normal Mouth: moist mucous membranes Eyes General: appearance normal, both eyes and all related structures Neck Neck: normal visual inspection Resp Effort & Inspection: normal respiratory effort and able to speak in complete sentences Cardio Rate: regular rate GI Palpation: soft and nontender Skin General skin exam: no rashes or lesions noted Neuro General: patient alert and patient oriented x3 Extrem General: normal to inspection Psych Mental Status: mental status grossly normal Course Vital Signs Vital signs: Vital Signs Temperature 36.4 C L 08/08/20 21:43 Pulse 103 H 08/08/20 21:43 Respiratory Rate 16 08/08/20 21:43 Blood Pressure 143/87 H 08/08/20 21:43 Pulse Oximetry 98 08/08/20 21:43 Temperature 36.4 C L 08/08/20 21:43 Temperature Source Skin 08/08/20 21:43 Pulse 103 H 08/08/20 21:43 Respiratory Rate 16 08/08/20 21:43 Respiratory Effort 08/08/20 21:45 Blood Pressure 143/87 H 08/08/20 21:43 Blood Pressure Position Supine 08/08/20 21:43 Pulse Oximetry 98 08/08/20 21:43 Oxygen Delivery Method Room Air 08/08/20 21:43 Oxygen Flow Rate 0 08/08/20 21:43 Pain Level 4 08/08/20 21:45
[2020-08-08] MEDS: Oxybutynin-CR 5 MG TABCR PO ×2 (22:46)
[2020-08-08 22:47] VITALS: PULSE 94; RESP 16; TEMP 36.4; O2SAT 98
== END 2020-08-08 22:52 | disposition home or self-care (01) ==
LOC: ER 22:57
PROVIDERS: Emergency Provider Emergency Medicine; PCP Nurse Practitioner Family
DX: R10.30 Lower abdominal pain, unspecified (principal); R31.9 Hematuria, unspecified; N40.1 Benign prostatic hyperplasia with lower urinary tract symptoms; R33.8 Other retention of urine; Z85.46 Personal history of malignant neoplasm of prostate; I10 Essential (primary) hypertension
CPT/HCPCS: 99283

== ENCOUNTER 2020-08-23 10:31 | Emergency (ER) | payer MEDICAID, SELFPAY ==
[2020-08-23 10:35] VITALS: BP 119/68; PULSE 112; RESP 22; TEMP 36.1; O2SAT 98
--- NOTE | 2020-08-23 10:48 | ED.GENADUL_ITS ---
Discharge Plan Disposition Patient Disposition: HOME Condition: Stable Discharge Details Clinical Impression: Encounter for Carlos catheter removal Primary Care Provider: Mary Holland ED Provider: Kellee Rico Home Meds and New Rx's Prescriptions: Continued celecoxib 200 mg capsule 200 mg PO BID RF: 0 potassium chloride 10 mEq capsule, extended release 10 meq PO DAILY RF: 0 calcium-vitamin D3-vitamin K 1 EACH tablet,chewable 1 ea PO DAILY Qty: 90 RF: 3 amlodipine 10 MG tablet 10 mg PO DAILY RF: 0 Eliquis 5 mg tablet 5 mg PO BID RF: 0 oxybutynin chloride 5 mg tablet 5 mg PO TID PRN (Reason: bladder spasms) Qty: 14 RF: 0 lisinopril [Zestril] 30 MG tablet 30 mg PO QAM RF: 0 tamsulosin 0.4 mg capsule 0.4 mg PO BID RF: 0 Discharge Instructions Instructions: Carlos Catheter Removal (DC) Additional Instructions: Follow up with primary care provider in 3-5 days. Return to ED sooner if any worsening or concerns. Increase oral fluids. Follow-up with urology as directed. Return or be seen sooner if unable to urinate, fullness in your bladder or any concerns. Referrals: Mary Holland [Primary Care Provider] - Medical Decision Making At this time patient is requesting to have Carlos removed will order DC catheter orders discussed risks and benefits with patient who verbalized understanding he is adamant about having the Carlos removed. 1104: Carlos removed by staff weapons officer, catheter intact patient tolerated well. Plan is to discharge home with strict return instructions, verbalized understanding. HPI General Mode of arrival: ambulatory . Date/Time Provider Initiated Documentation: 08/23/20 10:33 . Limitations to Documentation: no limitations . Information obtained by: patient . HPI Narrative: 64-year-old male presents to the ED with request to DC his Carlos catheter. Patient had Carlos catheter placed August 21 at [facility] ED after he was having some hematuria with clots and urinary retention. She denies any trouble with Carlos draining and there is pink-tinged urine output noted in the bag at this time. Discussed need to be able to void on his own prior to discharge which patient responded by saying that he has been known to self cath before in the past due to prostate cancer and has no problem needing to self cath if needed. Medical records reviewed from [facility] and he does have an appointment on August 28 which is Thursday with urology for reevaluation of the Carlos catheter. Related Data Home Medications Medication Instructions Recorded Confirmed calcium-vitamin D3-vitamin K 1 ea PO DAILY #90 tab.chew 04/26/14 08/23/20 amlodipine 10 mg PO DAILY 08/25/14 08/08/20 lisinopril [Zestril] 30 mg PO QAM 05/04/17 08/23/20 tamsulosin 0.4 mg capsule 0.4 mg PO BID cap 03/02/19 08/23/20 celecoxib 200 mg capsule 200 mg PO BID cap 03/07/20 08/23/20 potassium chloride 10 mEq 10 meq PO DAILY 03/07/20 08/23/20 capsule,extended release Eliquis 5 mg PO BID 08/08/20 08/23/20 oxybutynin chloride 5 mg PO TID PRN #14 tab 08/08/20 Previous Rx's Medication Instructions Recorded oxybutynin chloride 5 mg PO TID PRN #14 tab 08/08/20 Allergies Allergy/AdvReac Type Severity Reaction Status Date / Time docetaxel Allergy Severe Anaphylaxsi Unverified 08/23/20 10:39 s adhesive tape Allergy Hives Unverified 08/23/20 10:39 oxycodone HCl [From Percocet] AdvReac Intermediate Nausea Unverified 08/23/20 10:39 tramadol AdvReac Intermediate Dizziness/L Unverified 08/23/20 10:39 ightheade Opioids - Morphine Analogues AdvReac Unknown nausea Unverified 08/23/20 10:39 pain killers Allergy Uncoded 08/23/20 10:39 General Stated Complaint: Urinary ADA: 4 Review of Systems All systems reviewed & are unremarkable except as noted in HPI and below Genitourinary Genitourinary: Reports difficulty urinating (Patient has Carlos catheter in place upon arrival. 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, bone, and lungs Aortic stenosis Bilateral inguinal hernia BPH (benign prostatic hypertrophy) with urinary obstruction History of herpes simplex type 2 infection Hypertension Malignant neoplasm of prostate metastatic to bone Prostate cancer metastatic to multiple sites Tobacco dependence Vertigo Surgical History Arthroplasty of knee Cystoscopy History of orchiectomy, bilateral 03/08/14 Hx of prostate biopsy Rotator Cuff Repair left S/P TURP (status post transurethral resection of prostate) 09/08/14 for obstructive symptoms Family History Mother Pancreatic cancer Brother Colorectal cancer Son No problems noted. Daughter No problems noted. Social History Smoking/Tobacco Use Status: Former Tobacco Use Quit Date: 02/13/16 Smoking risk assessment performed?: Yes Alcohol Intake: never Drug use: Never Substance use type: does not use Do you feel safe at home: Yes Do you feel safe in your relationship?: Yes Exam Narrative Exam Narrative: Constitutional: Alert and oriented x3. Appears stated age. Normal body habitus. Head: Normocephalic, no trauma. Chest: RRR, Normal S1, S2, distal pulses intact. Resp: Lungs clear to auscultation bilaterally, no wheezes, rales, or rhonchi. Genitourinary: Carlos catheter in place with leg bag, pinkish urine output approximately 100 mils noted in the bag. Skin: No suspicious rashes or lesions. Capillary refill less than 2 sec. Course Vital Signs Vital signs: Vital Signs Temperature 36.1 C L 08/23/20 10:35 Pulse 112 H 08/23/20 10:35 Respiratory Rate 22 08/23/20 10:35 Blood Pressure 119/68 08/23/20 10:35 Pulse Oximetry 98 08/23/20 10:35 Temperature 36.1 C L 08/23/20 10:35 Temperature Source Skin 08/23/20 10:35 Pulse 112 H 08/23/20 10:35 Respiratory Rate 22 08/23/20 10:35 Blood Pressure 119/68 08/23/20 10:35 Blood Pressure Position Sitting 08/23/20 10:35 Pulse Oximetry 98 08/23/20 10:35 Oxygen Delivery Method Room Air 08/23/20 10:35 Oxygen Flow Rate 0 08/23/20 10:35 Pain Level 3 08/23/20 10:35 Comment 08/23/20 10:35
== END 2020-08-23 11:07 | disposition home or self-care (01) ==
LOC: ER 11:04
PROVIDERS: Emergency Provider Registered Nurse Emergency; PCP Nurse Practitioner Family
DX: R33.8 Other retention of urine (principal); Z46.6 Encounter for fitting and adjustment of urinary device; I10 Essential (primary) hypertension
CPT/HCPCS: 99281

== ENCOUNTER 2020-08-27 03:15 | Outpatient (CLI) | payer MEDICAID, SELFPAY ==
[2020-08-27 09:26] LABS: Abs Immature Grans 0.05 10^3/uL (0.0-0.06); Absolute Basophil Count 0.04 10^3/uL (0.0-0.2); Absolute Eosinophil Count 0.44 10^3/uL (0.0-0.7); Absolute Lymphocyte Count 0.82 10^3/uL (1.2-3.4); Absolute Monocyte Count 0.62 10^3/uL (0.1-0.8); Absolute Neutrophil Count 7.21 10^3/uL (1.2-6.7); Basophils % 0.4; Eosinophils % 4.8; HCT 26.3 % (40.0-50.0); HGB 8.6 g/dL (13.5-17.5); Immature Grans % 0.5; Lymphocytes % 8.9; MCH 29.1 pg (27.0-33.0); MCHC 32.7 % (32.0-36.0); MCV 88.9 fL (80-95); MPV 8.8 fL (8.0-11.0); Monocytes % 6.8; Neutrophils % 78.6; Nucleated RBC 0 %; Platelet Count 294 10^3/uL (130-400); RBC 2.96 10^6/uL (4.36-5.78); RDW 15.7 % (11.8-14.1); RDW-SD 51.8 fL; WBC 9.18 10^3/uL (4.4-10.8)
[2020-08-27 09:57] LABS: ALT 62 U/L (16-63); AST 69 U/L (15-37); Albumin 3.1 g/dL (3.4-5.0); Alkaline Phosphatase 203 U/L (46-116); Anion Gap 9.4 mmol/L (3-11); BUN 29 mg/dL (7-18); Bilirubin, Total 0.3 mg/dL (0.2-1.0); CO2 24.6 mmol/L (21.0-32.0); CREATININE 1.33 mg/dL (0.70-1.30); Calcium 9.2 mg/dL (8.5-10.1); Chloride 95 mmol/L (98-107); Estimated GFR 54.13 (mL/min/1.73m2); Glucose 117 mg/dL (74-106); Sodium 129 mmol/L (136-145); Total Protein 7.5 g/dL (6.4-8.2)
[2020-08-28 15:59] LABS: FREE T4 1.31 ng/dL (0.76-1.46); TSH 1.76 uIU/mL (0.36-3.74)
[2020-08-30 13:07] LABS: PSA, Ultrasensitive 21.2 ng/mL (<= 4.5)
== END 2020-08-27 03:35 ==
PROVIDERS: PCP Nurse Practitioner Family; Visit Provider Internal Medicine
DX: C79.19 Secondary malignant neoplasm of other urinary organs (principal); C61 Malignant neoplasm of prostate; R94.6 Abnormal results of thyroid function studies; R33.9 Retention of urine, unspecified; Z79.899 Other long term (current) drug therapy
CPT/HCPCS: 36415; 80053; 84153; 84439; 84443; 85025

== ENCOUNTER 2020-09-14 03:08 | Outpatient (CLI) | payer MEDICAID, SELFPAY ==
[2020-09-14 09:35] LABS: Abs Immature Grans 0.04 10^3/uL (0.0-0.06); Absolute Basophil Count 0.03 10^3/uL (0.0-0.2); Absolute Eosinophil Count 0.15 10^3/uL (0.0-0.7); Absolute Lymphocyte Count 0.81 10^3/uL (1.2-3.4); Absolute Neutrophil Count 8.78 10^3/uL (1.2-6.7); Basophils % 0.3; Eosinophils % 1.4; HCT 27.8 % (40.0-50.0); HGB 8.8 g/dL (13.5-17.5); Immature Grans % 0.4; Lymphocytes % 7.6; MCH 28.1 pg (27.0-33.0); MCHC 31.7 % (32.0-36.0); MCV 88.8 fL (80-95); MPV 8.5 fL (8.0-11.0); Monocytes % 7.5; Neutrophils % 82.8; Nucleated RBC 0 %; Platelet Count 239 10^3/uL (130-400); RBC 3.13 10^6/uL (4.36-5.78); RDW 15.9 % (11.8-14.1); RDW-SD 52.4 fL; WBC 10.61 10^3/uL (4.4-10.8)
[2020-09-14 09:42] LABS: Diff Comment RBC Morph Reviewed; Hypochromasia 1+; Polychromasia Present
[2020-09-14 10:04] LABS: ALT 41 U/L (16-63); AST 73 U/L (15-37); Albumin 2.9 g/dL (3.4-5.0); Alkaline Phosphatase 303 U/L (46-116); Anion Gap 11.1 mmol/L (3-11); BUN 25 mg/dL (7-18); Bilirubin, Total 0.4 mg/dL (0.2-1.0); CO2 22.9 mmol/L (21.0-32.0); CREATININE 1.51 mg/dL (0.70-1.30); Calcium 11.4 mg/dL (8.5-10.1); Chloride 99 mmol/L (98-107); Estimated GFR 46.76 (mL/min/1.73m2); Glucose 129 mg/dL (74-106); Potassium 4.3 mmol/L (3.5-5.1); Sodium 133 mmol/L (136-145); Total Protein 7.3 g/dL (6.4-8.2)
[2020-09-17 10:21] LABS: PSA, Ultrasensitive 39.3 ng/mL (<= 4.5)
== END 2020-09-14 03:28 ==
PROVIDERS: PCP Nurse Practitioner Family; Visit Provider Internal Medicine
DX: C61 Malignant neoplasm of prostate (principal); C79.51 Secondary malignant neoplasm of bone; C78.01 Secondary malignant neoplasm of right lung; C78.02 Secondary malignant neoplasm of left lung
CPT/HCPCS: 36415; 80053; 84153; 85025